=== PATIENT | female | born 1965 | race Caucasian/White ===

== ENCOUNTER 2020-01-29 22:55 | Emergency (ER) | payer OTHER ==
[~2020-01-29] VITALS: Ht 172.7 cm; Wt 100.0 kg
[~2020-01-29 22:55] MED LIST: ABAT125S IM; CYCL10TA2 PO; DULO60CA45 PO; FOLI1TAB16 PO; HYDR-2761 PO; LANS30CA66 PO; METH2.5T PO
[2020-01-30] MEDS ORDERED: MORPHINE SULFATE 10 MG/ML VIAL. IV ONE (00:15)
[2020-01-30] MEDS ORDERED: ONDANSETRON PF 4 MG/2 ML VIAL. IVP ONE ×2 (00:15→02:45)
[2020-01-30] MEDS ORDERED: CONTRAST GIVEN. MC PRN (01:00)
[2020-01-30] MEDS ORDERED: IOHEXOL 240 MG/ML 50ML VIAL. PO ONE (01:00)
--- NOTE | 2020-01-30 01:22 | ED.ADGEN ---
Past Medical History Past Medical History: Anxiety, Depression, Other Additional Past Medical Histor: rheumatoid arthritis Past Surgical History: Other Additional Past Surgical Histo: hernia rep, abd stapled Smoking Status: Former Smoker Alcohol Use: None Drug Use: Marijuana Adult General Chief Complaint Chief Complaint: ABDOMINAL PAIN HPI HPI Patient is a 54 year old female who presents with left lower quadrant pain radiating groin. Onset 2 hours prior to arrival. No nausea vomiting, fever chills or sweats. No urinary frequency urgency or burning. Pain is moderate to severe. Denies constipation or diarrhea. The patient give herself an enema prior to arrival without relief of symptoms. Previous abdominal wall hernia repair. No history of bowel obstructions. No other acute symptoms or complaints.[] Review of Systems Review of Systems ROS as per HPI Current Medications Current Medications Current Medications Medications (Trade) Dose Ordered Sig/Rah Start Time Stop Time Status Last Admin Dose Admin Info (CONTRAST GIVEN -- Rx MONITORING) 1 each PRN DAILY PRN 01/30/20 01:00 02/01/20 00:59 Iohexol (Omnipaque 240 Mg/ml) 30 ml 1X ONCE 01/30/20 01:00 01/30/20 01:01 DC 01/30/20 01:30 30 ML Ketorolac Tromethamine (Toradol 30mg Vial) 30 mg 1X ONCE 01/30/20 02:45 01/30/20 02:46 DC 01/30/20 03:53 30 MG Morphine Sulfate (Morphine Sulfate) 4 mg 1X ONCE 01/30/20 02:45 01/30/20 02:46 DC 01/30/20 03:54 4 MG Ondansetron HCl (Zofran) 4 mg 1X ONCE 01/30/20 02:45 01/30/20 02:46 DC 01/30/20 03:53 4 MG Allergies Allergies Allergies Coded Allergies Type Severity Reaction Last Updated Verified No Known Drug Allergies 06/26/14 No Physical Exam Physical Exam Constitutional: Well developed, well nourished, no acute distress, non-toxic appearance. [] HENT: Normocephalic, atraumatic, bilateral external ears normal, oropharynx moist,, nose normal. [] Eyes: PERRLA, EOMI, conjunctiva normal, no discharge. [] Neck: Normal range of motion. [] Cardiovascular:Heart rate regular rhythm, no murmur [] Lungs & Thorax: Bilateral breath sounds clear to auscultation. [] Abdomen: Bowel sounds normal, soft, no tenderness. [] Skin: Warm, dry, no erythema, no rash. [] Back: No tenderness. [] Extremities: No tenderness, no edema. [] Neurologic: Alert and oriented X 3, normal motor function, normal sensory function, no focal deficits noted. [] Psychologic: Affect normal, judgement normal, mood normal. [] Current Patient Data Vital Signs Vital Signs Date Time Temp Pulse Resp B/P (MAP) Pulse Ox O2 Delivery O2 Flow Rate FiO2 01/30/20 03:54 16 98 Room Air 01/29/20 23:15 98.2 79 142/87 (105) 98.2 Lab Values Laboratory Tests Test 01/30/20 01:10 01/30/20 03:16 White Blood Count 15.4 x10^3/uL (4.0-11.0) H Red Blood Count 4.44 x10^6/uL (3.50-5.40) Hemoglobin 15.1 g/dL (12.0-15.5) Hematocrit 44.1 % (36.0-47.0) Mean Corpuscular Volume 99 fL (79-100) Mean Corpuscular Hemoglobin 34 pg (25-35) Mean Corpuscular Hemoglobin Concent 34 g/dL (31-37) Red Cell Distribution Width 14.4 % (11.5-14.5) Platelet Count 359 x10^3/uL (140-400) Neutrophils (%) (Auto) 76 % (31-73) H Lymphocytes (%) (Auto) 15 % (24-48) L Monocytes (%) (Auto) 7 % (0-9) Eosinophils (%) (Auto) 1 % (0-3) Basophils (%) (Auto) 1 % (0-3) Neutrophils # (Auto) 11.8 x10^3/uL (1.8-7.7) H Lymphocytes # (Auto) 2.3 x10^3/uL (1.0-4.8) Monocytes # (Auto) 1.1 x10^3/uL (0.0-1.1) Eosinophils # (Auto) 0.2 x10^3/uL (0.0-0.7) Basophils # (Auto) 0.1 x10^3/uL (0.0-0.2) Sodium Level 139 mmol/L (136-145) Potassium Level 3.7 mmol/L (3.5-5.1) Chloride Level 100 mmol/L (98-107) Carbon Dioxide Level 29 mmol/L (21-32) Anion Gap 10 (6-14) Blood Urea Nitrogen 20 mg/dL (7-20) Creatinine 1.2 mg/dL (0.6-1.0) H Estimated GFR (Cockcroft-Gault) 46.6 BUN/Creatinine Ratio 17 (6-20) Glucose Level 117 mg/dL (70-99) H Calcium Level 9.4 mg/dL (8.5-10.1) Total Bilirubin 0.5 mg/dL (0.2-1.0) Aspartate Amino Transferase (AST) 12 U/L (15-37) L Alanine Aminotransferase (ALT) 34 U/L (14-59) Alkaline Phosphatase 97 U/L (46-116) Troponin I Quantitative < 0.017 ng/mL (0.000-0.055) Total Protein 7.2 g/dL (6.4-8.2) Albumin 3.9 g/dL (3.4-5.0) Albumin/Globulin Ratio 1.2 (1.0-1.7) Lipase 572 U/L (73-393) H Urine Collection Type Unknown Urine Color Yellow Urine Clarity Clear Urine pH 5.5 (<5.0-8.0) Urine Specific [place] 1.020 (1.000-1.030) Urine Protein Negative mg/dL (NEG-TRACE) Urine Glucose (UA) Negative mg/dL (NEG) Urine Ketones (Stick) Negative mg/dL (NEG) Urine Blood Large (NEG) Urine Nitrite Negative (NEG) Urine Bilirubin Negative (NEG) Urine Urobilinogen Dipstick 0.2 mg/dL (0.2 mg/dL) Urine Leukocyte Esterase Negative (NEG) Urine RBC Tntc /HPF (0-2) Urine WBC 1-4 /HPF (0-4) Urine Squamous Epithelial Cells Mod /LPF Urine Bacteria Few /HPF (0-FEW) Urine Mucus Marked /LPF Laboratory Tests 01/30/20 01:10 Laboratory Tests 01/30/20 01:10 EKG EKG [] Radiology/Procedures Radiology/Procedures [Abdomen pelvis: 4 mm distal stone with hydronephrosis.] Course & Med Decision Making Course & Med Decision Making Pertinent Labs and Imaging studies reviewed. (See chart for details) [4 mm distal stone without infection and moderate hydronephrosis. Symptoms improved with treatment. Patient resting comfortably. Will treat supportively with PCP follow-up for recommended urology referral. Return precautions reviewed. Patient verbalizes understanding agreement discharge instructions prior to departure.] Dragon Disclaimer Dragon Disclaimer This electronic medical record was generated, in whole or in part, using a voice recognition dictation system. JUAN HOWELL DO Jan 30, 2020 01:21
[2020-01-30 01:57] LABS: BASO # 0.1 x10^3/uL (0.0-0.2); BASO % 1 % (0-3); EOS # 0.2 x10^3/uL (0.0-0.7); EOS % 1 % (0-3); HEMATOCRIT 44.1 % (36.0-47.0); HEMOGLOBIN 15.1 g/dL (12.0-15.5); LYMPH # 2.3 x10^3/uL (1.0-4.8); LYMPH % 15 % (24-48); MEAN CORPUSCULAR HEMOGLOBIN 34 pg (25-35); MEAN CORPUSCULAR HGB CONC 34 g/dL (31-37); MEAN CORPUSCULAR VOLUME 99 fL (79-100); MONO # 1.1 x10^3/uL (0.0-1.1); MONO % 7 % (0-9); NEUT # 11.8 x10^3/uL (1.8-7.7); NEUT % 76 % (31-73); PLATELET COUNT 359 x10^3/uL (140-400); RED BLOOD COUNT 4.44 x10^6/uL (3.50-5.40); RED CELL DISTRIBUTION WIDTH 14.4 % (11.5-14.5); WHITE BLOOD COUNT 15.4 x10^3/uL (4.0-11.0)
--- NOTE | 2020-01-30 02:01 | RAD ---
CT abdomen and pelvis without contrast: Reason for examination: Left lower quadrant abdominal pain. Helical images were obtained through the abdomen and pelvis with no intravenous contrast but oral contrast was given. Reconstruction was performed in sagittal and coronal planes. Exposure: One or more of the following individualized dose reduction techniques were utilized for this examination: 1. Automated exposure control 2. Adjustment of the mA and/or kV according to patient size 3. Use of iterative reconstruction technique. The lung bases are clear. The heart size is normal with no pericardial effusion. No abnormality seen at the liver. Spleen shows calcified granuloma. Gallbladder shows cholelithiasis. No abnormality seen at the pancreas or adrenal glands. The abdominal aorta and inferior vena cava show no abnormalities. No abnormality seen at the appendix. The colon shows no diverticulosis, diverticulitis or colitis. The small intestinal tract shows no abnormal dilatation, wall thickening or obstruction. Stomach shows postop changes in the contains a large amount of contrast but shows no obstruction or wall thickening. The right kidney shows no renal mass, renal calculi, hydronephrosis or obstructive uropathy. The left kidney shows no renal masses or renal calculus. There is however moderate hydronephrosis which appears be due to a distal ureteral calculus measuring 4 mm in greatest dimension. No abnormality seen at the bladder, uterus or ovaries. No free fluid or free air seen in the abdomen or pelvis. There are some degenerative changes in the spine but no acute bony abnormality seen. IMPRESSION: Cholelithiasis. Moderate left hydronephrosis due to a 4 mm calculus at the distal left ureter. Electronically signed by: Jolanta Barroso MD (01/30/2020 1:58 AM) [id number]
[2020-01-30 02:09] LABS: CALCIUM 9.4 mg/dL (8.5-10.1); CREATININE 1.2 mg/dL (0.6-1.0); GFR 46.6; POTASSIUM 3.7 mmol/L (3.5-5.1)
[2020-01-30 02:14] LABS: ALBUMIN 3.9 g/dL (3.4-5.0); ALBUMIN/GLOBULIN RATIO 1.2 (1.0-1.7); TOTAL BILIRUBIN 0.5 mg/dL (0.2-1.0); TOTAL PROTEIN 7.2 g/dL (6.4-8.2)
[2020-01-30] MEDS ORDERED: MORPHINE SULFATE 4 MG/ML VIAL. IV ONE (02:45)
[2020-01-30] MEDS ORDERED: KETOROLAC 30 MG/ML VIAL. IVP ONE (02:45)
[2020-01-30 03:33] LABS: BILIRUBIN,URINE NEGATIVE (NEG); CLARITY,URINE CLEAR; COLOR,URINE YELLOW; NITRITE,URINE NEGATIVE (NEG); PH,URINE 5.5 (<5.0-8.0); PROTEIN,URINE NEGATIVE (NEG-TRACE); UROBILINOGEN,URINE 0.2 mg/dL (0.2 mg/dL)
[2020-01-30 03:45] LABS: RBC,URINE TNTC /HPF (0-2)
[2020-01-30 03:46] LABS: BACTERIA,URINE FEW /HPF (0-FEW); SQUAMOUS EPITHELIAL CELL,UR MOD /LPF
[2020-01-30 03:51] VITALS: BP 143/66
[2020-01-30] MEDS ORDERED: HYDR-3135 PO (04:03)
[2020-01-30] MEDS ORDERED: TAMS0.4C97 PO (04:03)
[2020-01-30] MEDS ORDERED: ONDA4TAB7 PO (04:03)
== END 2020-01-30 04:50 | disposition home or self-care (01) ==
LOC: ER 22:55
DX: N13.2 Hydronephrosis with renal and ureteral calculous obstruction (principal); K80.20 Calculus of gallbladder without cholecystitis without obstruction; Z87.891 Personal history of nicotine dependence; Z98.890 Other specified postprocedural states
CPT/HCPCS: 36415; 74176; 80053; 81001; 83690; 84484; 85025; 96374; 96375; 96376; 99285; J1885; J2270; J2405; Q9966

== ENCOUNTER 2020-07-22 20:31 | Emergency (ER) | payer OTHER ==
[~2020-07-22] VITALS: Ht 172.7 cm; Wt 102.0 kg
[~2020-07-22 20:31] MED LIST changes: +HYDR-3135 PO; +ONDA4TAB7 PO; +TAMS0.4C97 PO
[2020-07-22 20:55] VITALS: BP 132/64
--- NOTE | 2020-07-22 21:50 | PHYS DOC ---
Past Medical History Past Medical History: Anxiety, Depression, High Cholesterol, Hypertension, Other Additional Past Medical Histor: rheumatoid arthritis, neuropathy Past Surgical History: Other Additional Past Surgical Histo: hernia rep, abd stapled Smoking Status: Former Smoker Alcohol Use: None Drug Use: Marijuana General Adult EDM: Chief Complaint: SHORTNESS OF BREATH HPI: HPI: Patient is a 55 year [id number] female presents with a chief complaint of shortness of breath nausea fever since this a.m. Patient states she last took ibuprofen at 1700 hrs. Patient states she has nasal drainage congestion and a cough. Patient is currently afebrile she is nontoxic appearing. Patient's vital signs are stable. Review of Systems: Review of Systems: Constitutional: POSITIVE FEVER Eyes: Denies change in visual acuity. [] HENT: POSITIVE nasal congestion Respiratory: POSITIVE cough or shortness of breath. [] Cardiovascular: Denies chest pain or edema. [] GI: Denies abdominal pain, nausea, vomiting, bloody stools or diarrhea. [] : Denies dysuria. [] Musculoskeletal: Denies back pain or joint pain. [] Integument: Denies rash. [] Neurologic: Denies headache, focal weakness or sensory changes. [] Endocrine: Denies polyuria or polydipsia. [] Lymphatic: Denies swollen glands. [] Psychiatric: Denies depression or anxiety. [] Heart Score: Risk Factors: Risk Factors: DM, Current or recent (<one month) smoker, HTN, HLP, family history of CAD, obesity. Risk Scores: Score 0 - 3: 2.5% MACE over next 6 weeks - Discharge Home Score 4 - 6: 20.3% MACE over next 6 weeks - Admit for Clinical Observation Score 7 - 10: 72.7% MACE over next 6 weeks - Early Invasive Strategies Allergies: Allergies: Allergies Coded Allergies Type Severity Reaction Last Updated Verified No Known Drug Allergies 06/26/14 No Physical Exam: PE: Constitutional: Well developed, well nourished, no acute distress, non-toxic appearance. [] HENT: Normocephalic, atraumatic, bilateral external ears normal, oropharynx moist, no oral exudates, nose normal. [] Eyes: PERRLA, EOMI, conjunctiva normal, no discharge. [] Neck: Normal range of motion, no tenderness, supple, no stridor. [] Cardiovascular:Heart rate regular rhythm, no murmur [] Lungs & Thorax: Bilateral breath sounds clear to auscultation [] Abdomen: Bowel sounds normal, soft, no tenderness, no masses, no pulsatile masses. [] Skin: Warm, dry, no erythema, no rash. [] Back: No tenderness, no CVA tenderness. [] Extremities: No tenderness, no cyanosis, no clubbing, ROM intact, no edema. [] Neurologic: Alert and oriented X 3, normal motor function, normal sensory f unction, no focal deficits noted. [] Psychologic: Affect normal, judgement normal, mood normal. [] Current Patient Data: Vital Signs: Vital Signs Date Time Temp Pulse Resp B/P (MAP) Pulse Ox O2 Delivery O2 Flow Rate FiO2 07/22/20 20:55 98.6 83 16 132/64 (86) 97 Room Air 98.6 EKG: EKG: [] Radiology/Procedures: Radiology/Procedures: [] Impression: Findings: AP portable upright frontal view of the chest was obtained. The cardiomediastinal silhouette is normal. Lungs are clear. There is no pneumothorax. No pleural effusion is appreciated. No acute bone abnormality. Epigastric surgical clips are present. IMPRESSION: No acute cardiopulmonary process. Course & Med Decision Making: Course & Med Decision Making Pertinent Labs and Imaging studies reviewed. (See chart for details) [] Dragon Disclaimer: Dragon Disclaimer: This electronic medical record was generated, in whole or in part, using a voice recognition dictation system. Departure Departure Impression: Primary Impression: Person under investigation for COVID-19 Additional Impression: Viral syndrome Disposition: 01 HOME, SELF-CARE Condition: STABLE Referrals: EMMIE PRECIADO MSN, RN, MEDICAL VIDEOGRAPHER (PCP) Patient Instructions: Viral Syndrome Additional Instructions: You have been tested for or diagnosed with COVID-19. It is an infection caused by a new type of coronavirus. COVID-19 will cause cold-like or mild flu symptoms in most. It can cause more severe symptoms like problems breathing in some. There is no treatment for COVID-19. The body will clear the infection over time. Self-care will help to ease discomfort. Steps to Take: Self-Care Rest as needed. Healthy habits may help you feel better. Steps include: Choose healthy foods including fruits and vegetables. Drink water throughout the day. Get plenty of sleep each night. If you smoke, try to quit. It may ease breathing. Avoid alcohol. Keep Others Healthy The virus can spread to others. Droplets are released every time you sneeze or cough. The droplets can get into the mouth, nose, or eyes of people near you and lead to infection. To lower the chances of spreading COVID-19 to others: Stay at home until your doctor has said it is safe to leave. If you tested positive this will mean staying isolated until both of the following are true: At least 7 days have passed since the start of illness. You are free of fever for at least 72 hours without the use of medicine. During this time: - Avoid public areas, events, or transportation. Do not return to work or school until your doctor has said it is safe to do so. - Call ahead if you need to go to a medical center. Let them know you may have COVID-19. It will help them guide you where to go. They may also ask you to wear a facemask when you come to the office. - If you call for emergency medical services, let them know you may have COVID- 19. While at home: - Try to avoid close contact with others. Stay about 6 feet away. - If possible, spend most of your time in a separate room from others. - Use a face mask if you will be in close contact with others such as sharing a room or vehicle. - Have someone wipe down common surfaces in the home. Use household studio engineer every day on areas like doorknobs, counters, or sinks. - Cough or sneeze into a tissue. Throw the tissue away right after use. If a tissue is not available, cough or sneeze into your elbow. - Wash your hands often. Wash them after sneezing or coughing. Use soap and water and wash for at least 20 seconds. Alcohol based hand sweeper cleaner industrial can be used if soap and water is not available. - Do not prepare food for others. Avoid sharing personal items like forks, spoons, or toothbrushes. - Avoid close contact with pets while you are sick. There is no evidence of the virus passing to pets. This is a safety step until more is known about this virus. Isolation can be frustrating. Social interaction can help. Keep in touch with friends and family through phone and tech options. You can still interact with others in your home, just keep a safe distance of about 6 feet. Follow-up: Your doctors office will check in with you to see if there are any changes in your health. You may be asked to keep track of symptoms to share with them. They will also let you know when you are clear to be in public again. Problems to Look Out For: Contact your doctor if your recovery is not going as you expect. Get emergency care if you have problems such as: - Trouble breathing - Nonstop chest pain or pressure - Changes in awareness, confusion, or problems waking - Lips or face have bluish color - Worsening of symptoms If you think you have an emergency, call for emergency medical services right away. As taken from [facility] Azithromycin (ZITHROMAX) 250 Mg Tablet 1 PKG PO UD, #6 TAB Prov: DARRYN GARG I DO 07/22/20 Justicifation of Admission Dx: Justifications for Admission: Justification of Admission Dx: N/A DARRYN GARG I DO Jul 22, 2020 21:50
--- NOTE | 2020-07-22 22:04 | RAD ---
Examination: CHEST AP ONLY History: sob fever Comparison: None. Findings: AP portable upright frontal view of the chest was obtained. The cardiomediastinal silhouette is normal. Lungs are clear. There is no pneumothorax. No pleural effusion is appreciated. No acute bone abnormality. Epigastric surgical clips are present. IMPRESSION: No acute cardiopulmonary process. Electronically signed by: Harvinder Silva MD (07/22/2020 10:01 PM) [id number]
[2020-07-22] MEDS ORDERED: AZIT250T PO (22:17)
--- NOTE | 2020-07-23 08:33 | EKG ---
[facility] [address] [place] [address] Test Date: 2020-07-22 Test Time: 20:52:12 Pat Name: HINA CROCKETT Department: Room: Gender: F Senior Actuarial Analyst: : 1965 Requested By: DARRYN GARG Order Number: [id number] Reading MD: Measurements Intervals [place] Rate: 79 P: 48 [place]: 214 QRS: 7 QRSD: 98 T: 58 QT: 382 QTc: 439 Interpretive Statements SINUS RHYTHM INCOMPLETE RIGHT BUNDLE BRANCH BLOCK OTHERWISE NORMAL ECG RI6.02 No previous ECG available for comparison
--- NOTE | 2020-07-24 09:29 | NUR ---
IP: Informed pt of negative COVID results. Pt verbalized understanding.
== END 2020-07-22 22:23 | disposition home or self-care (01) ==
LOC: ER 20:31
DX: B34.9 Viral infection, unspecified (principal); Z20.828 Contact with and (suspected) exposure to other viral communicable diseases; R06.02 Shortness of breath; R50.9 Fever, unspecified; R11.0 Nausea; F41.9 Anxiety disorder, unspecified; F32.9 Major depressive disorder, single episode, unspecified; E78.00 Pure hypercholesterolemia, unspecified; I10 Essential (primary) hypertension; F12.90 Cannabis use, unspecified, uncomplicated; Z87.891 Personal history of nicotine dependence; Z98.890 Other specified postprocedural states
CPT/HCPCS: 71045; 93005; 99285; U0003; 99284

== ENCOUNTER 2021-04-13 17:02 | Inpatient (IN) | payer OTHER ==
[~2021-04-13] VITALS: Ht 172.7 cm; Wt 104.0 kg
[~2021-04-13 17:02] MED LIST changes: +AZIT250T PO
[2021-04-13] MEDS ORDERED: VANCOMYCIN PER PHARMACY MC ONE (17:30)
[2021-04-13] MEDS ORDERED: fentaNYL PF VIAL 100 MCG/2 ML VIAL IVP ONE (17:30)
[2021-04-13] MEDS ORDERED: ONDANSETRON PF 4 MG/2 ML VIAL. IVP ONE (17:30)
[2021-04-13] MEDS ORDERED: IV NORMAL SALINE 1000ML BAG 1,000 ML IV SCH (17:30)
[2021-04-13] MEDS ORDERED: ACETAMINOPHEN 500 MG TABLET PO ONE (17:30)
--- NOTE | 2021-04-13 17:39 | PHYS DOC ---
Past Medical History Past Medical History: Anxiety, Depression, High Cholesterol, Hypertension, Other Additional Past Medical Histor: rheumatoid arthritis, neuropathy Past Surgical History: Other Additional Past Surgical Histo: hernia rep, abd stapled Smoking Status: Former Smoker Alcohol Use: None Drug Use: Marijuana General Adult EDM: Chief Complaint: ABSCESS HPI: HPI: Patient is a 55 year old female who presents with lower abdominal abscess with cellulitis for the last week. It is open and looks to be draining. She is febrile at 100 in the ER. She states she took a tramadol for 7 out of 10 pain earlier this morning. Pain is 7 out of 10 and aching burning. States she has slight nausea. She has a history of hernia repair, former smoker, marijuana use, depression, rheumatoid arthritis, neuropathy, hypertension, high cholesterol. Patient states she has received both of her Covid shots. She denies vomiting, chest pain, shortness of breath, cough, dizziness, body aches, chills, diarrhea, headache. Review of Systems: Review of Systems: Constitutional: Denies fever or chills. [] Eyes: Denies change in visual acuity. [] HENT: Denies nasal congestion or sore throat. [] Respiratory: Denies cough or shortness of breath. [] Cardiovascular: Denies chest pain or edema. [] GI: + abdominal pain, +nausea, denies vomiting, bloody stools or diarrhea. [] : Denies dysuria. [] Musculoskeletal: Denies back pain or joint pain. [] Integument: Denies rash. Abdominal abscess with cellulitis +[] Neurologic: Denies headache, focal weakness or sensory changes. [] Endocrine: Denies polyuria or polydipsia. [] Lymphatic: Denies swollen glands. [] Psychiatric: Denies depression or anxiety. [] Heart Score: C/O Chest Pain: No Risk Factors: Risk Factors: DM, Current or recent (<one month) smoker, HTN, HLP, family history of CAD, obesity. Risk Scores: Score 0 - 3: 2.5% MACE over next 6 weeks - Discharge Home Score 4 - 6: 20.3% MACE over next 6 weeks - Admit for Clinical Observation Score 7 - 10: 72.7% MACE over next 6 weeks - Early Invasive Strategies Current Medications: Current Medications Medications (Trade) Dose Ordered Sig/Rah Start Time Stop Time Status Last Admin Dose Admin Acetaminophen (Tylenol) 1,000 mg 1X ONCE 04/13/21 17:30 04/13/21 17:31 DC Fentanyl Citrate (Fentanyl 2ml Vial) 25 mcg 1X ONCE 04/13/21 17:30 04/13/21 17:31 DC Ondansetron HCl (Zofran) 4 mg 1X ONCE 04/13/21 17:30 04/13/21 17:31 DC Sodium Chloride 1,000 ml @ 1,000 mls/hr Q1H 04/13/21 17:30 04/13/21 18:29 Vancomycin HCl (Vanco Per Pharmacy) 1 each 1X ONCE 04/13/21 17:30 04/13/21 17:31 UNV Allergies: Allergies: Allergies Coded Allergies Type Severity Reaction Last Updated Verified No Known Drug Allergies 06/26/14 No Physical Exam: PE: Constitutional: Well developed, well nourished, no acute distress, non-toxic appearance. [] HENT: Normocephalic, atraumatic, bilateral external ears normal, oropharynx moist, no oral exudates, nose normal. [] Eyes: PERRLA, EOMI, conjunctiva normal, no discharge. [] Neck: Normal range of motion, no tenderness, supple, no stridor. [] Cardiovascular:Heart rate regular rhythm, no murmur [] Lungs & Thorax: Bilateral breath sounds clear to auscultation [] Abdomen: Bowel sounds normal, soft, no tenderness, no masses, no pulsatile masses. [] Skin: Warm, dry, abdominal abscess with erythema, no rash. [] Back: No tenderness, no CVA tenderness. [] Extremities: No tenderness, no cyanosis, no clubbing, ROM intact, no edema. [] Neurologic: Alert and oriented X 3, normal motor function, normal sensory function, no focal deficits noted. [] Psychologic: Affect normal, judgement normal, mood normal. [] EKG: EKG: [] Radiology/Procedures: Radiology/Procedures: [] Impression: [facility] [address] [place] [address] IMAGING REPORT Signed PATIENT: HINA CROCKETT ACCOUNT: [id number] : 1965 LOCATION: ER AGE: 55 SEX: F EXAM STATUS: REG ER ORD. PHYSICIAN: SUZANNE CAT APRN REASON: abdominal cellulitis with abscess PROCEDURE: CT ABD PELV W/ IV CONTRST ONLY Examination: CT of the abdomen pelvis with IV contrast HISTORY: History of abdominal cellulitis COMPARISON: 01/30/2020 TECHNIQUE: Axial CT images of the abdomen pelvis were performed with IV contrast. Coronal and sagittal reformats are performed Exposure: One or more of the following individualized dose reduction techniques were utilized for this examination: 1. Automated exposure control 2. Adjustment of the mA and/or kV according to patient size 3. Use of iterative reconstruction technique. FINDINGS: Minimal bibasilar lung atelectasis. No evidence of free air identified in the abdomen. The liver, spleen, adrenals grossly appears unremarkable. Gallstones identified within the gallbladder. The stomach is mildly distended. Metallic coils identified about the stomach. The visualized pancreas grossly appears unremarkable. The small bowel is nondilated. Feces and gas noted in the colon. The appendix is normal. The bilateral kidneys enhance symmetrically. Mild aortic atherosclerosis. Moderate inflammatory fat stranding identified in the anterior abdominal wall inferiorly likely cellulitis. Moderate degenerative changes lumbar spine. IMPRESSION: 1. Moderate inflammatory fat stranding identified in the anterior abdominal wall inferiorly likely cellulitis. 2. Cholelithiasis. Electronically signed by: Paco Estrada MD (04/13/2021 6:45 PM) [id number] DICTATED and SIGNED BY: PACO ESTRADA MD DATE: 04/13/21 [id number] Course & Med Decision Making: Course & Med Decision Making Pertinent Labs and Imaging studies reviewed. (See chart for details) See HPI. Alert and oriented x4. Ambulatory with steady gait. Speaks in full clear sentences. There is no abdominal large egg sized abscess that is open and appears to be have drained and is hard and nonfluctuant. It has associated cellulitis. The area expands at 28 cm horizontally and 18.5 cm vertically. Eren hurd is started on vancomycin and given fluid. She is also given Tylenol in the ED. Patient is told she will be admitted for IV antibiotics. She agrees to this. Blood work is unremarkable. Her C-reactive protein is elevated. [] Dragon Disclaimer: Dragon Disclaimer: This electronic medical record was generated, in whole or in part, using a voice recognition dictation system. Departure Departure Impression: Primary Impression: Cellulitis and abscess of other specified site Disposition: ADMITTED INPATIENT Admitting Physician: GUICHO Condition: STABLE Referrals: EMMIE PRECIADO MSN, RN, HOME HEALTH OCCUPATIONAL THERAPIST (PCP) SUZANNE CAT APRN Apr 13, 2021 17:39
[2021-04-13 17:52] LABS: BASO % 1 % (0-3); EOS # 0.1 x10^3/uL (0.0-0.7); EOS % 1 % (0-3); HEMATOCRIT 39.6 % (36.0-47.0); HEMOGLOBIN 13.6 g/dL (12.0-15.5); LYMPH # 1.8 x10^3/uL (1.0-4.8); LYMPH % 17 % (24-48); MEAN CORPUSCULAR HEMOGLOBIN 34 pg (25-35); MEAN CORPUSCULAR HGB CONC 34 g/dL (31-37); MEAN CORPUSCULAR VOLUME 100 fL (79-100); MONO # 0.5 x10^3/uL (0.0-1.1); MONO % 5 % (0-9); NEUT % 76 % (31-73); PLATELET COUNT 231 x10^3/uL (140-400); RED BLOOD COUNT 3.95 x10^6/uL (3.50-5.40); RED CELL DISTRIBUTION WIDTH 14.3 % (11.5-14.5); WHITE BLOOD COUNT 10.4 x10^3/uL (4.0-11.0)
[2021-04-13 18:04] LABS: CALCIUM 8.8 mg/dL (8.5-10.1); GFR 57.4; POTASSIUM 3.7 mmol/L (3.5-5.1)
[2021-04-13 18:10] LABS: ALBUMIN 3.1 g/dL (3.4-5.0); ALBUMIN/GLOBULIN RATIO 0.9 (1.0-1.7); C-REACTIVE PROTEIN 92.8 mg/L (0-3.3); TOTAL PROTEIN 6.6 g/dL (6.4-8.2)
[2021-04-13] MEDS ORDERED: IOHEXOL 300 MG/ML 100ML VIAL. IV ONE (18:15)
[2021-04-13] MEDS ORDERED: VANCOMYCIN 2 GM in IV NORMAL SALINE 500ML BAG 500 ML IV ONE (18:30)
--- NOTE | 2021-04-13 18:48 | RAD ---
Examination: CT of the abdomen pelvis with IV contrast HISTORY: History of abdominal cellulitis COMPARISON: 01/30/2020 TECHNIQUE: Axial CT images of the abdomen pelvis were performed with IV contrast. Coronal and sagitta l reformats are performed Exposure: One or more of the following individualized dose reduction techniques were utilized for thi s examination: 1. Automated exposure control 2. Adjustment of the mA and/or kV according to patient size 3. Use of iterative reconstruction technique. FINDINGS: Minimal bibasilar lung atelectasis. No evidence of free air identified in the abdomen. The liver, spl een, adrenals grossly appears unremarkable. Gallstones identified within the gallbladder. The stomach is mildly distended. Metallic coils identified about the stomach. The visualized pancreas grossly ap pears unremarkable. The small bowel is nondilated. Feces and gas noted in the colon. The appendix is normal. The bilateral kidneys enhance symmetrically. Mild aortic atherosclerosis. Moderate inflammatory fat stranding identified in the anterior abdominal wall inferiorly likely cellu litis. Moderate degenerative changes lumbar spine. IMPRESSION: 1. Moderate inflammatory fat stranding identified in the anterior abdominal wall inferiorly likely c ellulitis. 2. Cholelithiasis. Electronically signed by: Paco Estrada MD (04/13/2021 6:45 PM) [id number]
[2021-04-13] MEDS ORDERED: ACETAMINOPHEN 325 MG TABLET. PO PRN (19:00)
[2021-04-13 20:00] VITALS: BP 103/59
--- NOTE | 2021-04-13 20:01 | NUR ---
pt. arrived to the floor at 1999 by wheelchair from ER. Pt. is A&Ox4, on room air and is rating her pain 7/10. Pt. is pleasant and able to answer all questions. Call light placed within reach with bed in lowest setting. Will continue to monitor.
--- NOTE | 2021-04-13 20:14 | NUR ---
Pharmacy Vancomycin Dosing Note S:Consulted to monitor and dose vancomycin started 04/13/21. O:HINA CROCKETT is a 55 year old F with Abscess . Height: 5 feet, 8 inches Weight: 100.0 kg [place] Body Weight: 63.90 Adjusted Body Weight: 78.34 Dosing Weight: Actual Other Antibiotics: LABS: Last BUN: Last Creatinine: 1.0 Creatinine Clearance: 73 mL/min Last WBC: 10.4 Last Procalcitonin: Tmax (past 24 hours): 100 Microbiology: I/O: Drug Levels: Last level: on at Last dose given 04/13/21 at 1919 Vancomycin Dosing: Loading Dose: 2000 mg x1 Dosing Weight: Actual Target Trough: 10-20 A: Based on: WEIGHT AND RENAL FUNCTION, 2GM VANCOMYCIN IV GIVEN, P: 1. BEGIN Vancomycin 1500 mg IV q12h 2. Follow up Trough level on 04/15/21 at 0700 3. Pharmacy will continue to monitor, follow and adjust therapy as needed. HELEN FERNANDES RPH, 04/13/212013
[2021-04-13] MEDS ORDERED: VANCOMYCIN PER PHARMACY MC PRN (20:15)
[2021-04-13] MEDS: fentaNYL PF VIAL 100 MCG/2 ML VIAL IV PRN (20:23)
--- NOTE | 2021-04-13 22:15 | HP ---
ADMIT DATE: 04/13/2021 CHIEF COMPLAINT: Abdominal wound. HISTORY OF PRESENT ILLNESS: The patient is a pleasant middle-aged female who presented to the ER with abdominal wound and abscess. Rates it is 7/10. She has associated weakness. She has been trying to care for at home. She took some Ultram and some [id number]-[id number] meds. Symptoms now at 7/10. I discussed the case with ER physician. It appears the patient needs IV antibiotics. We are going to admit the patient, give her IV antibiotics and do some wound care. PAST MEDICAL HISTORY: Anxiety, depression, hyperlipidemia, hypertension, rheumatoid arthritis, neuropathy, hernia repair, tobacco abuse, marijuana use. ALLERGIES: None. FAMILY HISTORY: Hypertension. SOCIAL HISTORY: She quit smoking. No drink or drugs other than marijuana. MEDICATIONS: Reviewed. Please refer to the medication. PHYSICAL EXAMINATION: VITALS: Within normal limits and are stable. GENERAL: No apparent distress. Alert and oriented. HEENT: Normal cephalic atraumatic, external auditory canals are patent. EYES: Extraocular muscles are intact, pupils are equally round and reactive to light and accommodation. MUSCULOSKELETAL: Well developed, well nourished, good range of motion. ENDOCRINE: No thyromegaly was palpated. LYMPHATICS: No cervical chain or axillary nodes were noted. HEMATOPOIETIC: No bruising. NECK: Supple, no JVD, no thyromegaly was noted. LUNGS: Clear to auscultation in all lung burnham without rhonchi or wheezing. HEART: RRR, S1, S2 present. Peripheral pulses intact, no obvious murmurs were noted. ABDOMEN: The patient complains of abdominal wound. She has an abdominal abscess. Please see the pictures. EXTREMITIES: Without any cyanosis, clubbing, or edema. Pedal pulses intact, Homans sign is negative. NEUROLOGIC: Normal speech, normal tone. A and O x 3. Moves all extremities, no obvious focal deficits. PSYCHIATRIC: Normal affect, normal mood. Stable. SKIN: No ulcerations or rashes, good skin turgor, no jaundice. VASCULAR: Good capillary refill, neurovascular bundle appears to be intact. ASSESSMENT AND PLAN: Abdominal wall abscess. The patient will be admitted. We will consult Infectious Disease. IV antibiotics, home medications, deep venous thrombosis prophylaxis. Full code. Wound care. SAHRA/PRICE DR: SAHRA/katie TID: [id number]
[2021-04-13] MEDS ORDERED: QUET25TA5 PO (22:33)
[2021-04-13] MEDS ORDERED: TIZA4TAB2 PO (22:33)
[2021-04-13] MEDS ORDERED: TRAM50TA PO (22:33)
[2021-04-13] MEDS ORDERED: LAMO25TA31 PO (22:33)
[2021-04-13] MEDS ORDERED: HYDR12.575 PO (22:33)
[2021-04-13] MEDS ORDERED: GABA300C18 PO (22:33)
[2021-04-13] MEDS ORDERED: DICL100G54 TP (22:33)
[2021-04-13] MEDS ORDERED: ESCITALOPRAM OX10 MG PO (22:33)
[2021-04-13] MEDS ORDERED: CRESTOR5 MG PO (22:33)
[2021-04-13] MEDS ORDERED: traMADol 50 MG TABLET PO PRN (22:45)
[2021-04-13] MEDS ORDERED: lamoTRIgine 100 MG TABLET. PO SCH (22:54)
[2021-04-13 23:00] VITALS: BP 96/55
[2021-04-13] MEDS ORDERED: QUEtiapine 25 MG TABLET. PO ONE (23:00)
[2021-04-13] MEDS ORDERED: GABAPENTIN 300 MG CAPSULE. PO ONE (23:00)
[2021-04-13] MEDS ORDERED: lamoTRIgine 25 MG TABLET. PO ONE (23:00)
[2021-04-13] MEDS: tiZANidine 4 MG TABLET. PO PRN (23:05)
[2021-04-14 02:53] VITALS: BP 108/60
[2021-04-14 07:00] VITALS: BP 91/56
[2021-04-14] MEDS ORDERED: VANCOMYCIN 1.5 GM in IV NORMAL SALINE 500ML BAG 500 ML IV SCH (07:30)
[2021-04-14] MEDS: FOLIC ACID 1 MG TABLET. PO SCH (08:57)
[2021-04-14] MEDS: hydroCHLOROthiazide 12.5 MG CAPSULE PO SCH (08:57)
[2021-04-14] MEDS: CITALOPRAM 20 MG TABLET. PO SCH (08:57)
[2021-04-14] MEDS: CYCLOBENZAPRINE 10 MG TABLET. PO SCH (08:57)
[2021-04-14] MEDS: QUEtiapine 25 MG TABLET. PO SCH ×2 (08:57→20:13)
[2021-04-14] MEDS: GABAPENTIN 300 MG CAPSULE. PO SCH ×2 (08:57→20:12)
[2021-04-14] MEDS: lamoTRIgine 100 MG TABLET. PO SCH ×4 (08:57→20:12)
[2021-04-14] MEDS: DICLOFENAC SODIUM 1% TOPICAL GEL 100GM TUBE. TP SCH ×4 (08:58→20:10)
[2021-04-14] MEDS ORDERED: lamoTRIgine 100 MG TABLET. PO SCH (09:00)
--- NOTE | 2021-04-14 09:23 | PDOC2 ---
LACEY WASHINGTON OBSTETRICS AND GYNECOLOGY PROFESSOR 04/14/21 0923: CONSULT Date of Consult Date of Consult DATE: 04/14/21 TIME: 09:15 Reason for Consult Reason for Consult: abdominal wall cellulitis Referring Physician Referring Physician: Dr Jasso Identification/Chief Complaint Chief Complaint abdominal pain Source Source: Chart review, Patient History of Present Illness Reason for Visit: 6 days of abdominal pain, drainage, redness, she does do injections to abdomen for her RA Past Medical History Cardiovascular: No pertinent hx, HTN Pulmonary: Pneumonia CENTRAL NERVOUS SYSTEM: Other GI: GERD Hepatobiliary: No pertinent hx Psych: Anxiety, Depression Rheumatologic: Rheumatoid arthritis Infectious disease: No pertinent hx Renal/: No pertinent hx Endocrine: No pertinent hx Past Surgical History Past Surgical History: Hernia Repair, Other Family History Family History: Coronary Artery Disease, Diabetes Social History ALCOHOL: none Drugs: Marijuana Lives: with Family Current Problem List Problem List Problems Medical Problems: (1) Cellulitis and abscess of other specified site Status: Acute Current Medications Current Medications Current Medications Vancomycin HCl (Vanco Per Pharmacy) 1 each 1X ONCE MC Last administered on 04/13/21at 17:30; Start 04/13/21 at 17:30; Stop 04/13/21 at 19:35; Status DC Sodium Chloride 1,000 ml @ 1,000 mls/hr Q1H IV Last administered on 04/13/21at 18:09; Start 04/13/21 at 17:30; Stop 04/13/21 at 18:29; Status DC Fentanyl Citrate (Fentanyl 2ml Vial) 25 mcg 1X ONCE IVP Last administered on 04/13/21at 18:09; Start 04/13/21 at 17:30; Stop 04/13/21 at 17:31; Status DC Ondansetron HCl (Zofran) 4 mg 1X ONCE IVP Last administered on 04/13/21at 18:09; Start 04/13/21 at 17:30; Stop 04/13/21 at 17:31; Status DC Acetaminophen (Tylenol) 1,000 mg 1X ONCE PO Last administered on 04/13/21at 18:08; Start 04/13/21 at 17:30; Stop 04/13/21 at 17:31; Status DC Vancomycin HCl 2 gm/Sodium Chloride 500 ml @ 250 mls/hr 1X ONCE IV Last administered on 04/13/21at 19:19; Start 04/13/21 at 18:30; Stop 04/13/21 at 20:29; Status DC Iohexol (Omnipaque 300 Mg/ml) 60 ml 1X ONCE IV Last administered on 04/13/21at 18:21; Start 04/13/21 at 18:15; Stop 04/13/21 at 18:19; Status DC Fentanyl Citrate (Fentanyl 2ml Vial) 50 mcg PRN Q1HR PRN IV PAIN Last administered on 04/13/21at 20:23; Start 04/13/21 at 19:00; Stop 04/14/21 at 18:59 Acetaminophen (Tylenol) 650 mg PRN Q4HRS PRN PO FEVER > 100.3'F; Start 04/13/21 at 19:00; Stop 04/14/21 at 18:59 Vancomycin HCl 1.5 gm/Sodium Chloride 500 ml @ 250 mls/hr Q12H IV Last administered on 04/14/21at 08:56; Start 04/14/21 at 07:30 Vancomycin HCl (Vancomycin Trough Level) 1 each 1X ONCE MC ; Start 04/15/21 at 07:00; Stop 04/15/21 at 07:01 Vancomycin HCl (Vanco Per Pharmacy) 1 each PRN DAILY PRN MC SEE COMMENTS; Start 04/13/21 at 20:15 Cyclobenzaprine HCl (Flexeril) 10 mg DAILY PO Last administered on 04/14/21at 08:57; Start 04/14/21 at 09:00 Diclofenac Sodium (Voltaren) 1 brad QID TP Last administered on 04/14/21at 08:58; Start 04/14/21 at 09:00 Folic Acid (Folic Acid) 1 mg DAILY PO Last administered on 04/14/21at 08:57; Start 04/14/21 at 09:00 Gabapentin (Neurontin) 300 mg BID PO Last administered on 04/14/21at 08:57; Start 04/14/21 at 09:00 Hydrochlorothiazide (Microzide) 12.5 mg DAILY PO Last administered on 04/14/21at 08:57; Start 04/14/21 at 09:00 Methotrexate (Rheumatrex) 10 mg Mcgill PO ; Start 04/25/21 at 09:00 Quetiapine Fumarate (SEROquel) 25 mg BID PO Last administered on 04/14/21at 08:57; Start 04/14/21 at 09:00 Tizanidine HCl (Zanaflex) 2 mg PRN TID PRN PO MUSCLE SPASMS Last administered on 04/13/21at 23:05; Start 04/13/21 at 22:45 Tramadol HCl (Ultram) 50 mg PRN TID PRN PO PAIN; Start 04/13/21 at 22:45 Non-Formulary Medication (Abatacept (Orencia)) 125 mg WEEKLY IM ; Start 04/20/21 at 09:00; Status UNV Citalopram Hydrobromide (CeleXA) 20 mg DAILY PO Last administered on 04/14/21at 08:57; Start 04/14/21 at 09:00 Lamotrigine (LaMICtal) 100 mg DAILY PO ; Start 04/14/21 at 09:00; Status Cancel Atorvastatin Calcium (Lipitor) 40 mg QHS PO ; Start 04/14/21 at 21:00 Gabapentin (Neurontin) 300 mg 1X ONCE PO Last administered on 04/13/21at 23:06; Start 04/13/21 at 23:00; Stop 04/13/21 at 23:01; Status DC Quetiapine Fumarate (SEROquel) 25 mg 1X ONCE PO Last administered on 04/13/21at 23:05; Start 04/13/21 at 23:00; Stop 04/13/21 at 23:01; Status DC Lamotrigine (LaMICtal) 25 mg 1X ONCE PO ; Start 04/13/21 at 23:00; Stop 04/13/21 at 23:01; Status UNV Lamotrigine (LaMICtal) 300 mg QHS PO Last administered on 04/13/21at 23:05; Start 04/13/21 at 22:54; Stop 04/13/21 at 23:15; Status DC Lamotrigine (LaMICtal) 100 mg QID PO Last administered on 04/14/21at 08:57; Start 04/14/21 at 09:00 Active Scripts Active Reported Tramadol Hcl 50 Mg Tablet 50 Mg PO TID PRN Tizanidine Hcl 4 Mg Tablet 2 Mg PO TID PRN Crestor (Rosuvastatin Calcium) 5 Mg Tablet 20 Mg PO HS Seroquel (Quetiapine Fumarate) 25 Mg Tablet 25 Mg PO BID Lamotrigine 25 Mg Tab.er.24 25 Tab PO QID 30 Days Hydrochlorothiazide Capsule (Hydrochlorothiazide) 12.5 Mg Capsule 12.5 Mg PO DAILY Gabapentin (Gabapentin) 300 Mg Capsule 300 Mg PO BID Escitalopram Oxalate 10 Mg Tablet 1 Tab PO DAILY Voltaren (Diclofenac Sodium) 100 Gm Gel..gram. 1 Gm TP QID 30 Days apply to affected area(s) Methotrexate (Methotrexate Sodium) 2.5 Mg Tablet 2.5 Mg PO WEEKLY takes on Monday Cyclobenzaprine Hcl 10 Mg Tablet 10 Mg PO DAILY Folic Acid 1 Mg Tablet 1 Mg PO DAILY Orencia (Abatacept) 125 Mg/1 Ml Disp.syrin 125 Mg IM WEEKLY takes on Monday Allergies Allergies: Coded Allergies: No Known Drug Allergies (Unverified , 06/26/14) ROS General: No: Chills, Other (fevers ) PSYCHOLOGICAL ROS: No: Anxiety, Depression Eyes: No Blurry vision, No Double vision HEENT: No: Heacaches, Sore Throat Hematological and Lymphatic: No: Bleeding Problems, Blood Clots Respiratory: No: Cough, Shortness of breath Cardiovascular: No Chest Pain Gastrointestinal: No Nausea, No Vomiting, No Diarrhea Genitourinary: No Dysuria, No Hematuria Musculoskeletal: No Joint Pain, No Muscle Pain Neurological: No Impaired Coord/balance, No Numbness/Tingling Skin: Yes Other (see hpi) Physical Exam General: Alert, Oriented X3, Cooperative HEENT: Atraumatic, PERRLA Lungs: Clear to auscultation, Normal air movement Heart: Regular rate, Normal S1, Normal S2 Abdomen: Soft, Other (erythema is improved by markings, there is a central area of skin changes, induration, some drainage) Extremities: No clubbing, No cyanosis Skin: No rashes Neuro: Normal speech, Sensation intact Psych/Mental Status: Mental status NL, Mood NL MUSCULOSKELETAL: No deformity, No swelling Vitals VITALS Vital Signs Date Time Temp Pulse Resp B/P (MAP) Pulse Ox O2 Delivery O2 Flow Rate FiO2 04/14/21 07:00 98.2 79 16 91/56 (68) 93 Room Air 98.2 Labs Labs Laboratory Tests Test 04/13/21 17:40 White Blood Count 10.4 x10^3/uL (4.0-11.0) Red Blood Count 3.95 x10^6/uL (3.50-5.40) Hemoglobin 13.6 g/dL (12.0-15.5) Hematocrit 39.6 % (36.0-47.0) Mean Corpuscular Volume 100 fL (79-100) Mean Corpuscular Hemoglobin 34 pg (25-35) Mean Corpuscular Hemoglobin Concent 34 g/dL (31-37) Red Cell Distribution Width 14.3 % (11.5-14.5) Platelet Count 231 x10^3/uL (140-400) Neutrophils (%) (Auto) 76 % (31-73) Lymphocytes (%) (Auto) 17 % (24-48) Monocytes (%) (Auto) 5 % (0-9) Eosinophils (%) (Auto) 1 % (0-3) Basophils (%) (Auto) 1 % (0-3) Neutrophils # (Auto) 8.0 x10^3/uL (1.8-7.7) Lymphocytes # (Auto) 1.8 x10^3/uL (1.0-4.8) Monocytes # (Auto) 0.5 x10^3/uL (0.0-1.1) Eosinophils # (Auto) 0.1 x10^3/uL (0.0-0.7) Basophils # (Auto) 0.0 x10^3/uL (0.0-0.2) Sodium Level 136 mmol/L (136-145) Potassium Level 3.7 mmol/L (3.5-5.1) Chloride Level 100 mmol/L (98-107) Carbon Dioxide Level 26 mmol/L (21-32) Anion Gap 10 (6-14) Blood Urea Nitrogen 12 mg/dL (7-20) Creatinine 1.0 mg/dL (0.6-1.0) Estimated GFR (Cockcroft-Gault) 57.4 BUN/Creatinine Ratio 12 (6-20) Glucose Level 114 mg/dL (70-99) Lactic Acid Level 1.0 mmol/L (0.4-2.0) Calcium Level 8.8 mg/dL (8.5-10.1) Total Bilirubin 1.0 mg/dL (0.2-1.0) Aspartate Amino Transf (AST/SGOT) 14 U/L (15-37) Alanine Aminotransferase (ALT/SGPT) 24 U/L (14-59) Alkaline Phosphatase 85 U/L (46-116) C-Reactive Protein, Quantitative 92.8 mg/L (0-3.3) Total Protein 6.6 g/dL (6.4-8.2) Albumin 3.1 g/dL (3.4-5.0) Albumin/Globulin Ratio 0.9 (1.0-1.7) Laboratory Tests Test 04/13/21 17:40 White Blood Count 10.4 x10^3/uL (4.0-11.0) Red Blood Count 3.95 x10^6/uL (3.50-5.40) Hemoglobin 13.6 g/dL (12.0-15.5) Hematocrit 39.6 % (36.0-47.0) Mean Corpuscular Volume 100 fL (79-100) Mean Corpuscular Hemoglobin 34 pg (25-35) Mean Corpuscular Hemoglobin Concent 34 g/dL (31-37) Red Cell Distribution Width 14.3 % (11.5-14.5) Platelet Count 231 x10^3/uL (140-400) Neutrophils (%) (Auto) 76 % (31-73) Lymphocytes (%) (Auto) 17 % (24-48) Monocytes (%) (Auto) 5 % (0-9) Eosinophils (%) (Auto) 1 % (0-3) Basophils (%) (Auto) 1 % (0-3) Neutrophils # (Auto) 8.0 x10^3/uL (1.8-7.7) Lymphocytes # (Auto) 1.8 x10^3/uL (1.0-4.8) Monocytes # (Auto) 0.5 x10^3/uL (0.0-1.1) Eosinophils # (Auto) 0.1 x10^3/uL (0.0-0.7) Basophils # (Auto) 0.0 x10^3/uL (0.0-0.2) Sodium Level 136 mmol/L (136-145) Potassium Level 3.7 mmol/L (3.5-5.1) Chloride Level 100 mmol/L (98-107) Carbon Dioxide Level 26 mmol/L (21-32) Anion Gap 10 (6-14) Blood Urea Nitrogen 12 mg/dL (7-20) Creatinine 1.0 mg/dL (0.6-1.0) Estimated GFR (Cockcroft-Gault) 57.4 BUN/Creatinine Ratio 12 (6-20) Glucose Level 114 mg/dL (70-99) Lactic Acid Level 1.0 mmol/L (0.4-2.0) Calcium Level 8.8 mg/dL (8.5-10.1) Total Bilirubin 1.0 mg/dL (0.2-1.0) Aspartate Amino Transf (AST/SGOT) 14 U/L (15-37) Alanine Aminotransferase (ALT/SGPT) 24 U/L (14-59) Alkaline Phosphatase 85 U/L (46-116) C-Reactive Protein, Quantitative 92.8 mg/L (0-3.3) Total Protein 6.6 g/dL (6.4-8.2) Albumin 3.1 g/dL (3.4-5.0) Albumin/Globulin Ratio 0.9 (1.0-1.7) Assessment/Plan Assessment/Plan Abdominal wall cellulitis abx, NPO after MN, reassess if any drainage is needed MARK STEINBERG MD 04/14/21 1304: CONSULT Assessment/Plan Assessment/Plan Pt seen and examined. Agree with Ms. Washington's note Pt with excoriated skin ulceration, pannus no obvious fluctuance agree with abx and local wound care. May need debridement. Thanks for consult! LACEY WASHINGTON APRN Apr 14, 2021 09:23 MARK STEINBERG MD Apr 14, 2021 13:04
--- NOTE | 2021-04-14 10:17 | NUR ---
SW following. Discussed with RN, pt from home with family, room air, cardiac diet, IV abx. ID and wound care consulted. Surgery following - NPO after midnight. RN advised no SW needs at this time. SW will continue to follow.
[2021-04-14 11:00] VITALS: BP 106/62
[2021-04-14] MEDS: DAPTOmycin (GENERIC) IVPB 480 MG in IV NORMAL SALINE 50ML 50 ML IV SCH (11:50)
--- NOTE | 2021-04-14 12:13 | PDOC ---
[employer] PROGRESS NOTE Date of Service DOS: DATE: 04/14/21 TIME: 12:11 Chief Complaint Chief Complaint Abdominal wall cellulitis, possible abscess formation Continue empiric IV antibiotics Pending ID evaluation Appreciate surgery recscontinue antibiotics and warm compresses and evaluate tomorrow morning. N.p.o. at midnight Lovenox for DVT prophylaxis Protonix GI prophylaxis ADA diet Full code Discussed with RN and SW Disposition inpatient management as above Surrogate decision maker is History of Present Illness History of Present Illness 04/14/2021 No acute events overnight. Patient's pain is well controlled. Abdominal wound has some decrease in redness but still has active draining pus in the midline. Will consult surgery for evaluation. Patient's chart, labs, images were reviewed and discussed with RN pleasant middle-aged female who presented to the ER with abdominal wound and abscess. Rates it is 7/10. She has associated weakness. She has been trying to care for at home. She took some Ultram and some [id number] meds. Symptoms now at 7/10. I discussed the case with ER physician. It appears the patient needs IV antibiotics. We are going to admit the patient, give her IV antibiotics and do some wound care. Vitals/I&O Vitals/I&O: Vital Signs Date Time Temp Pulse Resp B/P (MAP) Pulse Ox O2 Delivery O2 Flow Rate FiO2 04/14/21 11:00 98.3 68 18 106/62 (77) 93 Room Air 98.3 I & O 04/13/21 04/13/21 04/14/21 15:00 23:00 07:00 Intake Total 1000 ml 240 ml Balance 1000 ml 240 ml Physical Exam General: Alert, Oriented X3, Cooperative Heart: Regular rate, Normal S1, Normal S2 Abdomen: Soft, Other (erythema is improved by markings, there is a central area of skin changes, induration, some drainage) Extremities: No clubbing, No cyanosis Skin: No rashes Labs Labs: Laboratory Tests Test 04/13/21 17:40 White Blood Count 10.4 x10^3/uL (4.0-11.0) Red Blood Count 3.95 x10^6/uL (3.50-5.40) Hemoglobin 13.6 g/dL (12.0-15.5) Hematocrit 39.6 % (36.0-47.0) Mean Corpuscular Volume 100 fL (79-100) Mean Corpuscular Hemoglobin 34 pg (25-35) Mean Corpuscular Hemoglobin Concent 34 g/dL (31-37) Red Cell Distribution Width 14.3 % (11.5-14.5) Platelet Count 231 x10^3/uL (140-400) Neutrophils (%) (Auto) 76 % (31-73) Lymphocytes (%) (Auto) 17 % (24-48) Monocytes (%) (Auto) 5 % (0-9) Eosinophils (%) (Auto) 1 % (0-3) Basophils (%) (Auto) 1 % (0-3) Neutrophils # (Auto) 8.0 x10^3/uL (1.8-7.7) Lymphocytes # (Auto) 1.8 x10^3/uL (1.0-4.8) Monocytes # (Auto) 0.5 x10^3/uL (0.0-1.1) Eosinophils # (Auto) 0.1 x10^3/uL (0.0-0.7) Basophils # (Auto) 0.0 x10^3/uL (0.0-0.2) Sodium Level 136 mmol/L (136-145) Potassium Level 3.7 mmol/L (3.5-5.1) Chloride Level 100 mmol/L (98-107) Carbon Dioxide Level 26 mmol/L (21-32) Anion Gap 10 (6-14) Blood Urea Nitrogen 12 mg/dL (7-20) Creatinine 1.0 mg/dL (0.6-1.0) Estimated GFR (Cockcroft-Gault) 57.4 BUN/Creatinine Ratio 12 (6-20) Glucose Level 114 mg/dL (70-99) Lactic Acid Level 1.0 mmol/L (0.4-2.0) Calcium Level 8.8 mg/dL (8.5-10.1) Total Bilirubin 1.0 mg/dL (0.2-1.0) Aspartate Amino Transf (AST/SGOT) 14 U/L (15-37) Alanine Aminotransferase (ALT/SGPT) 24 U/L (14-59) Alkaline Phosphatase 85 U/L (46-116) C-Reactive Protein, Quantitative 92.8 mg/L (0-3.3) Total Protein 6.6 g/dL (6.4-8.2) Albumin 3.1 g/dL (3.4-5.0) Albumin/Globulin Ratio 0.9 (1.0-1.7) Assessment and Plan Assessmemt and Plan Problems Medical Problems: (1) Cellulitis and abscess of other specified site Status: Acute Comment Review of Relevant I have reviewed the following items mag (where applicable) has been applied. Medications: Current Medications Medications (Trade) Dose Ordered Sig/Rah Route PRN Reason Start Time Stop Time Status Last Admin Dose Admin Vancomycin HCl (Vanco Per Pharmacy) 1 each 1X ONCE MC 04/13/21 17:30 04/13/21 19:35 DC 04/13/21 17:30 Sodium Chloride 1,000 ml @ 1,000 mls/hr Q1H IV 04/13/21 17:30 04/13/21 18:29 DC 04/13/21 18:09 Fentanyl Citrate (Fentanyl 2ml Vial) 25 mcg 1X ONCE IVP 04/13/21 17:30 04/13/21 17:31 DC 04/13/21 18:09 Ondansetron HCl (Zofran) 4 mg 1X ONCE IVP 04/13/21 17:30 04/13/21 17:31 DC 04/13/21 18:09 Acetaminophen (Tylenol) 1,000 mg 1X ONCE PO 04/13/21 17:30 04/13/21 17:31 DC 04/13/21 18:08 Vancomycin HCl 2 gm/Sodium Chloride 500 ml @ 250 mls/hr 1X ONCE IV 04/13/21 18:30 04/13/21 20:29 DC 04/13/21 19:19 Iohexol (Omnipaque 300 Mg/ml) 60 ml 1X ONCE IV 04/13/21 18:15 04/13/21 18:19 DC 04/13/21 18:21 Fentanyl Citrate (Fentanyl 2ml Vial) 50 mcg PRN Q1HR PRN IV PAIN 04/13/21 19:00 04/14/21 18:59 04/13/21 20:23 Vancomycin HCl 1.5 gm/Sodium Chloride 500 ml @ 250 mls/hr Q12H IV 04/14/21 07:30 04/14/21 10:42 DC 04/14/21 08:56 Cyclobenzaprine HCl (Flexeril) 10 mg DAILY PO 04/14/21 09:00 04/14/21 08:57 Diclofenac Sodium (Voltaren) 1 brad QID TP 04/14/21 09:00 04/14/21 08:58 Folic Acid (Folic Acid) 1 mg DAILY PO 04/14/21 09:00 04/14/21 08:57 Gabapentin (Neurontin) 300 mg BID PO 04/14/21 09:00 04/14/21 08:57 Hydrochlorothiazide (Microzide) 12.5 mg DAILY PO 04/14/21 09:00 04/14/21 08:57 Quetiapine Fumarate (SEROquel) 25 mg BID PO 04/14/21 09:00 04/14/21 08:57 Tizanidine HCl (Zanaflex) 2 mg PRN TID PRN PO MUSCLE SPASMS 04/13/21 22:45 04/13/21 23:05 Citalopram Hydrobromide (CeleXA) 20 mg DAILY PO 04/14/21 09:00 04/14/21 08:57 Gabapentin (Neurontin) 300 mg 1X ONCE PO 04/13/21 23:00 04/13/21 23:01 DC 04/13/21 23:06 Quetiapine Fumarate (SEROquel) 25 mg 1X ONCE PO 04/13/21 23:00 04/13/21 23:01 DC 04/13/21 23:05 Lamotrigine (LaMICtal) 300 mg QHS PO 04/13/21 22:54 04/13/21 23:15 DC 04/13/21 23:05 Lamotrigine (LaMICtal) 100 mg QID PO 04/14/21 09:00 04/14/21 08:57 Daptomycin 480 mg/ Sodium Chloride 50 ml @ 100 mls/hr Q24H IV 04/14/21 12:00 04/14/21 11:50 Justifications for Admission Other Justification SPENCER BAPTISTE MD Apr 14, 2021 12:13
--- NOTE | 2021-04-14 12:16 | CONS ---
DATE OF CONSULTATION: 04/14/2021 REFERRING PHYSICIAN: Dr. Singer. REASON FOR CONSULTATION: Abdominal wall cellulitis, antibiotic management. HISTORY OF PRESENT ILLNESS: A 55-year-old female with rheumatoid arthritis, on methotrexate, history of hernia repair and bypass surgery long time back, presented with complaints of abdominal swelling, redness, drainage, which started 6 days with worsening. The patient does injections to her abdomen for her rheumatoid arthritis medication. The patient was febrile at 100 degrees. She denies being on any antibiotics prior to admission. She has some nausea, no vomiting, no diarrhea, no headache, sore throat. The patient has received both of COVID shots. White count was normal at 10.4. Creatinine was 1.0, glucose of 114. C-reactive protein of 92.8, albumin of 3.1. CT abdomen and pelvis revealed moderate inflammatory fat stranding identified in the anterior abdominal wall inferiorly, likely cellulitis, cholelithiasis. Gallstones identified within gallbladder. Stomach was mildly distended. The patient was started on vancomycin. ID consultation has been requested for antibiotic management. CURRENT MEDICATIONS: Methotrexate, abatacept (Orencia) every weekly, IM vancomycin, atorvastatin, Lamictal, citalopram, quetiapine, hydrochlorothiazide, gabapentin, folic acid, diclofenac, cyclobenzaprine, tramadol, tizanidine, acetaminophen, fentanyl. PAST MEDICAL HISTORY: Rheumatoid arthritis, bone disease modifying agents, anxiety, depression, hyperlipidemia, hypertension, neuropathy, hernia repair, bypass repair 30-40 years ago. Tobacco abuse, marijuana abuse. ALLERGIES: None. FAMILY HISTORY: As per HPI. SOCIAL HISTORY: Quit smoking. No alcohol, no drugs other than marijuana. PHYSICAL EXAMINATION: VITAL SIGNS: Temperature 98.2, pulse 79, respiratory rate 18, blood pressure 91/56, oxygen saturation 93% on room air, T-max 100. GENERAL: Alert, oriented x 3 female, sitting upright in bed, in no acute distress, watching TV. HEENT: Normocephalic, atraumatic. Anicteric. No thrush. NECK: Supple, no JVD. LUNGS: Clear bilaterally. No wheezing. HEART: S1, S2. No gallops or murmurs. ABDOMEN: Obese. Erythema and swelling present over the anterior abdominal wall just below the umbilicus, above the suprapubic area receding from the previous markings. No fluctuance noted. Induration present. Some serosanguineous drainage. Mildly tender, no rebound or guarding. EXTREMITIES: No edema, no cyanosis. SKIN: Warm, dry, no generalized rash except for above. NEUROLOGIC: Alert, oriented x 3, grossly nonfocal. PSYCHIATRIC: Calm and cooperative. LABORATORY DATA: WBC 10.4, hemoglobin 13.6, hematocrit 39.6, platelets 231. Sodium 136, potassium 3.7, chloride 100, bicarbonate 26, BUN 12, creatinine 1.0, glucose 114, lactate 1.0, calcium 8.8. Total bilirubin 1.0. AST 14, ALT 24, alkaline phosphatase 85. C-reactive protein 92.8. Albumin 3.1. Micro none. Blood cultures pending. UA and urine culture pending. SARS COVID pending. IMAGING: CT abdomen and pelvis as above. IMPRESSION: 1. Abdominal wall cellulitis.Possible developing phlegmon. CT neg for abscess 2. Rheumatoid arthritis, on DMARD. 3. Anxiety, depression. 4. History of hernia repair. No foreign material per patient report. 5. Marijuana dependence. RECOMMENDATIONS: 1. Discontinue vancomycin as the patient is currently on 3 grams IV every day. Start daptomycin and Zosyn. 2. Follow up labs and cultures. 3. Continue local wound care. 4. General surgery consulted. 5. If worsens, may need I and D. 6. Continue supportive care. Thank you, Dr. Singer, for consulting Infectious Disease to participate in this patient's care. If you have any questions, do not hesitate to contact me. MARIAH DR: Esau TID: [id number] [facility]
[2021-04-14] MEDS: fentaNYL PF VIAL 100 MCG/2 ML VIAL IV PRN (12:44)
[2021-04-14] MEDS: PIPERACILLIN/TAZOBACTAM 3.375 GM in IV NORMAL SALINE 50ML 50 ML IV SCH ×2 (12:45→17:45)
[2021-04-14 15:00] VITALS: BP 88/46
--- NOTE | 2021-04-14 17:30 | NUR ---
Wound/Ostomy Care Wound Type/Assessment: pt declined wound care today, states that dressing has already been changed today, pt informed that wound care will attempt to see her again tomorrow. RADHA Arguello notified of pt's wishes.
[2021-04-14 19:00] VITALS: BP 97/57
[2021-04-14] MEDS ORDERED: ABATACEPT IM SCH (20:00)
[2021-04-14] MEDS: tiZANidine 4 MG TABLET. PO PRN (20:12)
[2021-04-14] MEDS: ATORVASTATIN CALCIUM 40 MG TABLET. PO SCH (20:13)
[2021-04-14 23:00] VITALS: BP 83/32
[2021-04-15] VITALS (7 sets, daily range): BP systolic 81–108; BP diastolic 37–59
[2021-04-15] MEDS: PIPERACILLIN/TAZOBACTAM 3.375 GM in IV NORMAL SALINE 50ML 50 ML IV SCH ×4 (00:46→18:51)
[2021-04-15] MEDS: oxyCODONE/APAP 5/325 1 TAB TABLET PO PRN ×3 (00:50→20:40)
--- NOTE | 2021-04-15 08:23 | PDOC ---
Infectious Disease Note Subjective: Subjective Patient feels about the same Abdominal swelling and redness is improved though slightly Denies fever, nausea, vomiting, shortness of breath, diarrhea, rash Otherwise as above Vital Signs: Vital Signs Vital Signs Date Time Temp Pulse Resp B/P (MAP) Pulse Ox O2 Delivery O2 Flow Rate FiO2 04/15/21 07:00 97.7 66 17 97/48 (64) 96 Room Air 97.7 Physical Exam: PHYSICAL EXAM GENERAL: Alert, oriented x 3 female, sitting upright in bed, in no acute distress, watching TV. HEENT: Normocephalic, atraumatic. Anicteric. No thrush. NECK: Supple, no JVD. LUNGS: Clear bilaterally. No wheezing. HEART: S1, S2. No gallops or murmurs. ABDOMEN: Obese. Erythema and swelling present over the anterior abdominal wall just below the umbilicus, above the suprapubic area receding from the previous markings. No fluctuance noted. Induration present. Some serosanguineous drainage. I was able to express purulent material today, mildly tender, no rebound or guarding. EXTREMITIES: No edema, no cyanosis. SKIN: Warm, dry, no generalized rash except for above. NEUROLOGIC: Alert, oriented x 3, grossly nonfocal. PSYCHIATRIC: Calm and cooperative. Medications: Inpatient Meds: Medications reviewed. Labs: Lab Laboratory Tests Test 04/14/21 11:56 04/15/21 07:10 SARS-CoV-2 RNA (MELLO) Negative (Negative) Glucose (Fingerstick) 84 mg/dL (70-99) Objective: Assessment: 1. Abdominal wall cellulitis. 2. Rheumatoid arthritis, on DMARD. 3. Anxiety, depression. 4. History of hernia repair. No foreign material per patient report. 5. Marijuana dependence. Plan: Plan of Care Sent purulent material for cultures April 15, 2021 1. Continue daptomycin and Zosyn. April 14, 2021 2. Follow up labs and cultures. 3. Continue local wound care. 4. General surgery consulted. 5. If worsens, may need I and D. 6. Continue supportive care. MIKHAIL LARIOS MD Apr 15, 2021 08:23
[2021-04-15 09:17] LABS: BASO % 0 % (0-3); EOS # 0.3 x10^3/uL (0.0-0.7); EOS % 5 % (0-3); HEMATOCRIT 35.9 % (36.0-47.0); HEMOGLOBIN 12.1 g/dL (12.0-15.5); LYMPH # 1.5 x10^3/uL (1.0-4.8); LYMPH % 26 % (24-48); MEAN CORPUSCULAR HEMOGLOBIN 35 pg (25-35); MEAN CORPUSCULAR HGB CONC 34 g/dL (31-37); MEAN CORPUSCULAR VOLUME 103 fL (79-100); MONO # 0.2 x10^3/uL (0.0-1.1); MONO % 4 % (0-9); NEUT # 3.9 x10^3/uL (1.8-7.7); NEUT % 66 % (31-73); PLATELET COUNT 210 x10^3/uL (140-400); RED BLOOD COUNT 3.49 x10^6/uL (3.50-5.40); RED CELL DISTRIBUTION WIDTH 14.4 % (11.5-14.5)
[2021-04-15 09:31] LABS: CALCIUM 8.4 mg/dL (8.5-10.1); CREATININE 0.8 mg/dL (0.6-1.0); GFR 74.2; POTASSIUM 4.1 mmol/L (3.5-5.1)
[2021-04-15] MEDS: CYCLOBENZAPRINE 10 MG TABLET. PO SCH (09:46)
[2021-04-15] MEDS: FOLIC ACID 1 MG TABLET. PO SCH (09:46)
[2021-04-15] MEDS: lamoTRIgine 100 MG TABLET. PO SCH ×4 (09:46→20:40)
[2021-04-15] MEDS: GABAPENTIN 300 MG CAPSULE. PO SCH ×2 (09:46→20:40)
[2021-04-15] MEDS: hydroCHLOROthiazide 12.5 MG CAPSULE PO SCH (09:46)
[2021-04-15] MEDS: CITALOPRAM 20 MG TABLET. PO SCH (09:46)
[2021-04-15] MEDS: DICLOFENAC SODIUM 1% TOPICAL GEL 100GM TUBE. TP SCH ×4 (09:47→20:40)
[2021-04-15] MEDS: QUEtiapine 25 MG TABLET. PO SCH ×2 (09:47→20:40)
--- NOTE | 2021-04-15 10:44 | PDOC ---
[facility] [facility] PROGRESS NOTE Date of Service DOS: DATE: 04/15/21 TIME: 10:42 Chief Complaint Chief Complaint Abdominal wall cellulitis, possible abscess formation Continue empiric IV antibiotics Pending ID evaluation Appreciate surgery recscontinue antibiotics and warm compresses and evaluate tomorrow morning. N.p.o. at midnight Lovenox for DVT prophylaxis Protonix GI prophylaxis ADA diet Full code Discussed with RN and SW Disposition inpatient management as above Surrogate decision maker is History of Present Illness History of Present Illness 04/15/2021 No acute events overnight. Patient feels okay today. A little bit tired. There is still active purulent drainage from the wound. Surgery considering possible debridement. Pending wound cultures from purulent fluid. Patient's chart, labs, images were reviewed and discussed with RN 04/14/2021 No acute events overnight. Patient's pain is well controlled. Abdominal wound has some decrease in redness but still has active draining pus in the midline. Will consult surgery for evaluation. Patient's chart, labs, images were reviewed and discussed with RADHA pleasant middle-aged female who presented to the ER with abdominal wound and abscess. Rates it is 7/10. She has associated weakness. She has been trying to care for at home. She took some Ultram and some [id number] meds. Symptoms now at 7/10. I discussed the case with ER physician. It appears the patient needs IV antibiotics. We are going to admit the patient, give her IV antibiotics and do some wound care. Vitals/I&O Vitals/I&O: Vital Signs Date Time Temp Pulse Resp B/P (MAP) Pulse Ox O2 Delivery O2 Flow Rate FiO2 04/15/21 09:51 96 Room Air 04/15/21 07:00 97.7 66 17 97/48 (64) 97.7 I & O 04/14/21 04/14/21 04/15/21 15:00 23:00 07:00 Intake Total 600 ml 200 ml Balance 600 ml 200 ml Physical Exam Physical Exam: GENERAL: Alert, oriented x 3 female, sitting upright in bed, in no acute distress, watching TV. HEENT: Normocephalic, atraumatic. Anicteric. No thrush. NECK: Supple, no JVD. LUNGS: Clear bilaterally. No wheezing. HEART: S1, S2. No gallops or murmurs. ABDOMEN: Obese. Erythema and swelling present over the anterior abdominal wall just below the umbilicus, above the suprapubic area receding from the previous markings. No fluctuance noted. Induration present. Some serosanguineous drainage. I was able to express purulent material today, mildly tender, no rebound or guarding. EXTREMITIES: No edema, no cyanosis. SKIN: Warm, dry, no generalized rash except for above. NEUROLOGIC: Alert, oriented x 3, grossly nonfocal. PSYCHIATRIC: Calm and cooperative. General: Alert, Oriented X3, Cooperative Heart: Regular rate, Normal S1, Normal S2 Abdomen: Soft, Other (erythema is improved by markings, there is a central area of skin changes, induration, some drainage) Extremities: No clubbing, No cyanosis Skin: No rashes Labs Labs: Laboratory Tests Test 04/14/21 11:56 04/15/21 07:10 04/15/21 08:30 SARS-CoV-2 RNA (MELLO) Negative (Negative) Glucose (Fingerstick) 84 mg/dL (70-99) White Blood Count 6.0 x10^3/uL (4.0-11.0) Red Blood Count 3.49 x10^6/uL (3.50-5.40) Hemoglobin 12.1 g/dL (12.0-15.5) Hematocrit 35.9 % (36.0-47.0) Mean Corpuscular Volume 103 fL (79-100) Mean Corpuscular Hemoglobin 35 pg (25-35) Mean Corpuscular Hemoglobin Concent 34 g/dL (31-37) Red Cell Distribution Width 14.4 % (11.5-14.5) Platelet Count 210 x10^3/uL (140-400) Neutrophils (%) (Auto) 66 % (31-73) Lymphocytes (%) (Auto) 26 % (24-48) Monocytes (%) (Auto) 4 % (0-9) Eosinophils (%) (Auto) 5 % (0-3) Basophils (%) (Auto) 0 % (0-3) Neutrophils # (Auto) 3.9 x10^3/uL (1.8-7.7) Lymphocytes # (Auto) 1.5 x10^3/uL (1.0-4.8) Monocytes # (Auto) 0.2 x10^3/uL (0.0-1.1) Eosinophils # (Auto) 0.3 x10^3/uL (0.0-0.7) Basophils # (Auto) 0.0 x10^3/uL (0.0-0.2) Sodium Level 142 mmol/L (136-145) Potassium Level 4.1 mmol/L (3.5-5.1) Chloride Level 107 mmol/L (98-107) Carbon Dioxide Level 32 mmol/L (21-32) Anion Gap 3 (6-14) Blood Urea Nitrogen 8 mg/dL (7-20) Creatinine 0.8 mg/dL (0.6-1.0) Estimated GFR (Cockcroft-Gault) 74.2 Glucose Level 93 mg/dL (70-99) Calcium Level 8.4 mg/dL (8.5-10.1) Magnesium Level 2.0 mg/dL (1.8-2.4) Assessment and Plan Assessmemt and Plan Problems Medical Problems: (1) Cellulitis and abscess of other specified site Status: Acute Comment Review of Relevant I have reviewed the following items mag (where applicable) has been applied. Medications: Current Medications Medications (Trade) Dose Ordered Sig/Rah Route PRN Reason Start Time Stop Time Status Last Admin Dose Admin Atorvastatin Calcium (Lipitor) 40 mg QHS PO 04/14/21 21:00 04/14/21 20:13 Daptomycin 480 mg/ Sodium Chloride 50 ml @ 100 mls/hr Q24H IV 04/14/21 12:00 04/14/21 11:50 Piperacillin Sod/ Tazobactam Sod 3.375 gm/Sodium Chloride 50 ml @ 100 mls/hr Q6HRS IV 04/14/21 12:00 04/15/21 05:20 Non-Formulary Medication (Abatacept (Orencia)) 1 mg WEEKLY IM 04/14/21 20:00 04/14/21 20:09 Oxycodone/ Acetaminophen (Percocet 5/325) 1 tab PRN Q6HRS PRN PO SEVERE PAIN 7-10 04/15/21 00:15 04/15/21 09:51 Justifications for Admission Other Justification SPENCER BAPTISTE MD Apr 15, 2021 10:44
--- NOTE | 2021-04-15 11:03 | PDOC ---
LACEY HOYOS CERTIFIED MEDICAL TECHNICIAN ASSISTANT 04/15/21 1103: SURGICAL PROGRESS NOTE DATE: 04/15/21 TIME: 11:02 Subjective resting had shower Vital Signs Vital Signs Date Time Temp Pulse Resp B/P (MAP) Pulse Ox O2 Delivery O2 Flow Rate FiO2 04/15/21 09:51 96 Room Air 04/15/21 07:00 97.7 66 17 97/48 (64) 97.7 I&O Intake and Output 04/15/21 07:00 Intake Total 800 ml Balance 800 ml Intake Oral 150 ml IV Total 650 ml # Voids 5 General: Alert, Cooperative Skin: Other (erythema seems improved, skin ulceration central area) Labs Laboratory Tests Test 04/13/21 17:40 04/14/21 11:56 04/15/21 07:10 04/15/21 08:30 White Blood Count 10.4 x10^3/uL (4.0-11.0) 6.0 x10^3/uL (4.0-11.0) Red Blood Count 3.95 x10^6/uL (3.50-5.40) 3.49 x10^6/uL (3.50-5.40) Hemoglobin 13.6 g/dL (12.0-15.5) 12.1 g/dL (12.0-15.5) Hematocrit 39.6 % (36.0-47.0) 35.9 % (36.0-47.0) Mean Corpuscular Volume 100 fL (79-100) 103 fL (79-100) Mean Corpuscular Hemoglobin 34 pg (25-35) 35 pg (25-35) Mean Corpuscular Hemoglobin Concent 34 g/dL (31-37) 34 g/dL (31-37) Red Cell Distribution Width 14.3 % (11.5-14.5) 14.4 % (11.5-14.5) Platelet Count 231 x10^3/uL (140-400) 210 x10^3/uL (140-400) Neutrophils (%) (Auto) 76 % (31-73) 66 % (31-73) Lymphocytes (%) (Auto) 17 % (24-48) 26 % (24-48) Monocytes (%) (Auto) 5 % (0-9) 4 % (0-9) Eosinophils (%) (Auto) 1 % (0-3) 5 % (0-3) Basophils (%) (Auto) 1 % (0-3) 0 % (0-3) Neutrophils # (Auto) 8.0 x10^3/uL (1.8-7.7) 3.9 x10^3/uL (1.8-7.7) Lymphocytes # (Auto) 1.8 x10^3/uL (1.0-4.8) 1.5 x10^3/uL (1.0-4.8) Monocytes # (Auto) 0.5 x10^3/uL (0.0-1.1) 0.2 x10^3/uL (0.0-1.1) Eosinophils # (Auto) 0.1 x10^3/uL (0.0-0.7) 0.3 x10^3/uL (0.0-0.7) Basophils # (Auto) 0.0 x10^3/uL (0.0-0.2) 0.0 x10^3/uL (0.0-0.2) Sodium Level 136 mmol/L (136-145) 142 mmol/L (136-145) Potassium Level 3.7 mmol/L (3.5-5.1) 4.1 mmol/L (3.5-5.1) Chloride Level 100 mmol/L (98-107) 107 mmol/L (98-107) Carbon Dioxide Level 26 mmol/L (21-32) 32 mmol/L (21-32) Anion Gap 10 (6-14) 3 (6-14) Blood Urea Nitrogen 12 mg/dL (7-20) 8 mg/dL (7-20) Creatinine 1.0 mg/dL (0.6-1.0) 0.8 mg/dL (0.6-1.0) Estimated GFR (Cockcroft-Gault) 57.4 74.2 BUN/Creatinine Ratio 12 (6-20) Glucose Level 114 mg/dL (70-99) 93 mg/dL (70-99) Lactic Acid Level 1.0 mmol/L (0.4-2.0) Calcium Level 8.8 mg/dL (8.5-10.1) 8.4 mg/dL (8.5-10.1) Total Bilirubin 1.0 mg/dL (0.2-1.0) Aspartate Amino Transf (AST/SGOT) 14 U/L (15-37) Alanine Aminotransferase (ALT/SGPT) 24 U/L (14-59) Alkaline Phosphatase 85 U/L (46-116) C-Reactive Protein, Quantitative 92.8 mg/L (0-3.3) Total Protein 6.6 g/dL (6.4-8.2) Albumin 3.1 g/dL (3.4-5.0) Albumin/Globulin Ratio 0.9 (1.0-1.7) SARS-CoV-2 RNA (MELLO) Negative (Negative) Glucose (Fingerstick) 84 mg/dL (70-99) Magnesium Level 2.0 mg/dL (1.8-2.4) Laboratory Tests Test 04/14/21 11:56 04/15/21 07:10 04/15/21 08:30 SARS-CoV-2 RNA (MELLO) Negative (Negative) Glucose (Fingerstick) 84 mg/dL (70-99) White Blood Count 6.0 x10^3/uL (4.0-11.0) Red Blood Count 3.49 x10^6/uL (3.50-5.40) Hemoglobin 12.1 g/dL (12.0-15.5) Hematocrit 35.9 % (36.0-47.0) Mean Corpuscular Volume 103 fL (79-100) Mean Corpuscular Hemoglobin 35 pg (25-35) Mean Corpuscular Hemoglobin Concent 34 g/dL (31-37) Red Cell Distribution Width 14.4 % (11.5-14.5) Platelet Count 210 x10^3/uL (140-400) Neutrophils (%) (Auto) 66 % (31-73) Lymphocytes (%) (Auto) 26 % (24-48) Monocytes (%) (Auto) 4 % (0-9) Eosinophils (%) (Auto) 5 % (0-3) Basophils (%) (Auto) 0 % (0-3) Neutrophils # (Auto) 3.9 x10^3/uL (1.8-7.7) Lymphocytes # (Auto) 1.5 x10^3/uL (1.0-4.8) Monocytes # (Auto) 0.2 x10^3/uL (0.0-1.1) Eosinophils # (Auto) 0.3 x10^3/uL (0.0-0.7) Basophils # (Auto) 0.0 x10^3/uL (0.0-0.2) Sodium Level 142 mmol/L (136-145) Potassium Level 4.1 mmol/L (3.5-5.1) Chloride Level 107 mmol/L (98-107) Carbon Dioxide Level 32 mmol/L (21-32) Anion Gap 3 (6-14) Blood Urea Nitrogen 8 mg/dL (7-20) Creatinine 0.8 mg/dL (0.6-1.0) Estimated GFR (Cockcroft-Gault) 74.2 Glucose Level 93 mg/dL (70-99) Calcium Level 8.4 mg/dL (8.5-10.1) Magnesium Level 2.0 mg/dL (1.8-2.4) Problem List Problems Medical Problems: (1) Cellulitis and abscess of other specified site Status: Acute Assessment/Plan wound care, abx will follow Justicifation of Admission Dx: Justifications for Admission: Justification of Admission Dx: N/A MARK STEINBERG MD 04/15/21 1312: SURGICAL PROGRESS NOTE Assessment/Plan Pt seen and examined. Agree with Ms. Hoyos's note Pt with c/o mild soreness ulcer stable, erythema less cont abx and wound care. LACEY HOYOS APRN Apr 15, 2021 11:03 MARK STEINBERG MD Apr 15, 2021 13:12
[2021-04-15] MEDS: DAPTOmycin (GENERIC) IVPB 480 MG in IV NORMAL SALINE 50ML 50 ML IV SCH (13:50)
[2021-04-15] MEDS: oxyCODONE IR 5 MG TABLET PO PRN (14:37)
[2021-04-15] MEDS: IV NORMAL SALINE 1000ML BAG 1,000 ML IV SCH (14:38)
--- NOTE | 2021-04-15 16:35 | NUR ---
Wound/Ostomy Care Wound Type/Assessment: Patient seen per wound care consult. See wound assessment. Patient has abscess/cellulitis to midline abdomen. Wound cleansed, assessed, and measured. There is a depth of 4.5cm. Wound flushed with saline and filter needle. We were able to express some pus from the wound. Patient requesting pain medication at this time, Saundra GARCIA here at bedside. Treatment Recommendations/Plan: Recommendations to pack with 1/4 inch Iodoform gauze packing and cover with ABD pad and tape. Change daily. Education provided: Patient educated on dressing changes and dressing supplies. Offloading surface/device: Patient is independent. Recommended Referrals/Tests: N/A Discharge Recommendations for dressings: Dressing change instructions left in room. No other wounds noted. Bed lowered and call light in reach. Wound care will follow up on 04/21/21.
[2021-04-15] MEDS ORDERED: HYDROmorphone 2 MG/ML VIAL IVP PRN (16:45)
[2021-04-15] MEDS ORDERED: diphenhydrAMINE HCL 25 MG CAPSULE PO PRN (19:15)
[2021-04-15] MEDS: ATORVASTATIN CALCIUM 40 MG TABLET. PO SCH (20:40)
[2021-04-15] MEDS: tiZANidine 4 MG TABLET. PO PRN (20:40)
[2021-04-16] VITALS (10 sets, daily range): BP systolic 101–130; BP diastolic 50–72
[2021-04-16] MEDS: PIPERACILLIN/TAZOBACTAM 3.375 GM in IV NORMAL SALINE 50ML 50 ML IV SCH ×5 (00:38→23:43)
[2021-04-16] MEDS: IV NORMAL SALINE 1000ML BAG 1,000 ML IV SCH ×3 (03:44→21:21)
[2021-04-16] MEDS: hydroCHLOROthiazide 12.5 MG CAPSULE PO SCH (09:00)
[2021-04-16] MEDS: DICLOFENAC SODIUM 1% TOPICAL GEL 100GM TUBE. TP SCH ×4 (09:00→21:26)
[2021-04-16] MEDS: lamoTRIgine 100 MG TABLET. PO SCH ×4 (09:00→21:22)
[2021-04-16] MEDS: CYCLOBENZAPRINE 10 MG TABLET. PO SCH (09:00)
[2021-04-16] MEDS: FOLIC ACID 1 MG TABLET. PO SCH (09:00)
[2021-04-16] MEDS: CITALOPRAM 20 MG TABLET. PO SCH (09:00)
[2021-04-16] MEDS: GABAPENTIN 300 MG CAPSULE. PO SCH ×2 (09:00→21:21)
[2021-04-16] MEDS: QUEtiapine 25 MG TABLET. PO SCH ×2 (09:00→21:21)
[2021-04-16] MEDS ORDERED: PROCHLORPERAZINE 10 MG/2 ML VIAL. IVP PRN (09:45)
[2021-04-16] MEDS ORDERED: fentaNYL PF VIAL 100 MCG/2 ML VIAL IVP PRN ×2 (09:45→13:00)
[2021-04-16] MEDS ORDERED: HYDROmorphone 2 MG/ML VIAL IVP PRN (09:45)
[2021-04-16] MEDS ORDERED: IV RINGERS,LACTATED 1000ML 1,000 ML IV SCH (09:45)
[2021-04-16] MEDS ORDERED: MORPHINE SULFATE 2 MG/ML VIAL. IVP PRN (09:45)
--- NOTE | 2021-04-16 10:36 | NUR ---
SW following. Discussed with RN, pt from home with family, room air, NPO, COVID-19 negative. Pt having an I&D today. SW awaiting further plan of care to determine discharge needs. SW will continue to follow.
--- NOTE | 2021-04-16 11:58 | PDOC ---
[employer] [facility] PROGRESS NOTE Date of Service DOS: DATE: 04/16/21 TIME: 11:57 Chief Complaint Chief Complaint Abdominal wall cellulitis, possible abscess formation Continue empiric IV antibiotics Pending ID evaluation Appreciate surgery recscontinue antibiotics and warm compresses and evaluate tomorrow morning. N.p.o. at midnight Lovenox for DVT prophylaxis Protonix GI prophylaxis ADA diet Full code Discussed with RN and SW Disposition inpatient management as above Surrogate decision maker is History of Present Illness History of Present Illness 04/16/2021 No acute events overnight. Guided by wound care and more purulence was expressed. Surgery recommend I&D and will plan for that later today. Pending wound cultures from purulent fluid so far preliminary shows staph aureus. Continue with IV antibiotics. Patient's chart, labs, images were reviewed and discussed with RN 04/15/2021 No acute events overnight. Patient feels okay today. A little bit tired. There is still active purulent drainage from the wound. Surgery considering possible debridement. Pending wound cultures from purulent fluid. Patient's chart, labs, images were reviewed and discussed with RN 04/14/2021 No acute events overnight. Patient's pain is well controlled. Abdominal wound has some decrease in redness but still has active draining pus in the midline. Will consult surgery for evaluation. Patient's chart, labs, images were reviewed and discussed with RADHA aldridge middle-aged female who presented to the ER with abdominal wound and abscess. Rates it is 7/10. She has associated weakness. She has been trying to care for at home. She took some Ultram and some [id number] meds. Symptoms now at 7/10. I discussed the case with ER physician. It appears the patient needs IV antibiotics. We are going to admit the patient, give her IV antibiotics and do some wound care. Vitals/I&O Vitals/I&O: Vital Signs Date Time Temp Pulse Resp B/P (MAP) Pulse Ox O2 Delivery O2 Flow Rate FiO2 04/16/21 07:00 97.8 67 17 115/67 (83) 98 Room Air 97.8 I & O 04/15/21 04/15/21 04/16/21 15:00 23:00 07:00 Intake Total 240 ml 300 ml 0 ml Balance 240 ml 300 ml 0 ml Physical Exam Physical Exam: GENERAL: Alert, oriented x 3 female, sitting upright in bed, in no acute distress, watching TV. HEENT: Normocephalic, atraumatic. Anicteric. No thrush. NECK: Supple, no JVD. LUNGS: Clear bilaterally. No wheezing. HEART: S1, S2. No gallops or murmurs. ABDOMEN: Obese. Erythema and swelling present over the anterior abdominal wall just below the umbilicus, above the suprapubic area receding from the previous markings. No fluctuance noted. Induration present. Some serosanguineous drainage. I was able to express purulent material today, mildly tender, no rebound or guarding. EXTREMITIES: No edema, no cyanosis. SKIN: Warm, dry, no generalized rash except for above. NEUROLOGIC: Alert, oriented x 3, grossly nonfocal. PSYCHIATRIC: Calm and cooperative. General: Alert, Cooperative Heart: Regular rate, Normal S1, Normal S2 Abdomen: Soft, Other (erythema is improved by markings, there is a central area of skin changes, induration, some drainage) Extremities: No clubbing, No cyanosis Skin: Other (erythema seems improved, skin ulceration central area) Labs Labs: Laboratory Tests Test 04/15/21 16:48 04/16/21 05:50 Glucose (Fingerstick) 144 mg/dL (70-99) Creatine Kinase 70 U/L (26-192) Assessment and Plan Assessmemt and Plan Problems Medical Problems: (1) Cellulitis and abscess of other specified site Status: Acute Comment Review of Relevant I have reviewed the following items mag (where applicable) has been applied. Medications: Current Medications Medications (Trade) Dose Ordered Sig/Rah Route PRN Reason Start Time Stop Time Status Last Admin Dose Admin Oxycodone HCl (Roxicodone) 5 mg PRN Q6HRS PRN PO SEVERE PAIN 2ND CHOICE 04/15/21 14:00 04/15/21 14:37 Sodium Chloride 1,000 ml @ 100 mls/hr Q10H IV 04/15/21 15:00 04/16/21 03:44 Hydromorphone HCl (Dilaudid) 0.4 mg 1X PRN IVP PAIN 04/15/21 16:45 04/16/21 10:16 DC 04/15/21 16:38 Diphenhydramine HCl (Benadryl) 25 mg PRN Q8HRS PRN PO ITCHING 04/15/21 19:15 04/15/21 19:10 Justifications for Admission Other Justification SPENCER BAPTISTE MD Apr 16, 2021 11:58
[2021-04-16] MEDS: DAPTOmycin (GENERIC) IVPB 480 MG in IV NORMAL SALINE 50ML 50 ML IV SCH (13:09)
--- NOTE | 2021-04-16 13:13 | PDOC ---
Infectious Disease Note Subjective: Subjective Patient feels about the same Abdominal swelling, pain and redness remains unchanged Denies fever, nausea, vomiting, shortness of breath, diarrhea, rash Otherwise as above Vital Signs: Vital Signs Vital Signs Date Time Temp Pulse Resp B/P (MAP) Pulse Ox O2 Delivery O2 Flow Rate FiO2 04/16/21 13:07 96 Room Air 04/16/21 11:00 97.8 61 17 129/60 (83) 97.8 Physical Exam: PHYSICAL EXAM GENERAL: Alert, oriented x 3 female, sitting upright in bed, in no acute distress, watching TV. HEENT: Normocephalic, atraumatic. Anicteric. No thrush. NECK: Supple, no JVD. LUNGS: Clear bilaterally. No wheezing. HEART: S1, S2. No gallops or murmurs. ABDOMEN: Obese. Erythema and swelling present over the anterior abdominal wall just below the umbilicus, above the suprapubic area receding from the previous markings. Induration present. EXTREMITIES: No edema, no cyanosis. SKIN: Warm, dry, no generalized rash except for above. NEUROLOGIC: Alert, oriented x 3, grossly nonfocal. PSYCHIATRIC: Calm and cooperative. Medications: Inpatient Meds: Medications reviewed. Labs: Lab Laboratory Tests Test 04/15/21 16:48 04/16/21 05:50 Glucose (Fingerstick) 144 mg/dL (70-99) Creatine Kinase 70 U/L (26-192) Objective: Assessment: 1. Abdominal wall abscess with cellulitis swab cult staph aureus 2. Rheumatoid arthritis, on DMARD. 3. Anxiety, depression. 4. History of hernia repair. No foreign material per patient report. 5. Marijuana dependence. Plan: Plan of Care 1. Continue daptomycin and Zosyn. April 14, 2021 2. Follow up labs and cultures.f/u staph aureus 3. Continue local wound care. 4. General surgery following 5. Awaiting surgery later today 6. Continue supportive care. Send intraoperative fluid for cultures Discussed with nursing staff MIKHAIL LARIOS MD Apr 16, 2021 13:13
[2021-04-16] MEDS ORDERED: fentaNYL PF VIAL 100 MCG/2 ML VIAL ONE ×2 (18:22→19:42)
[2021-04-16] MEDS: fentaNYL PF VIAL 100 MCG/2 ML VIAL IVP PRN ×2 (18:24→20:43)
[2021-04-16] MEDS ORDERED: ONDANSETRON PF 4 MG/2 ML VIAL. ONE (18:37)
[2021-04-16] MEDS ORDERED: PROPOFOL 10 MG/ML (20ML) VIAL. IV ONE (18:37)
[2021-04-16] MEDS ORDERED: LIDOCAINE 2% PF 5 ML VIAL. ONE (18:37)
[2021-04-16] MEDS ORDERED: DEXAMETHASONE SOD PHOS 4 MG/ML VIAL ONE (18:37)
--- NOTE | 2021-04-16 18:52 | PDOC ---
SURGICAL PROGRESS NOTE DATE: 04/16/21 TIME: 18:51 Subjective Pre-Op Note 55 yo F with abdominal wall abscess TO OR for washout and debridement R/R/B/A d/w pt. Vital Signs Vital Signs Date Time Temp Pulse Resp B/P (MAP) Pulse Ox O2 Delivery O2 Flow Rate FiO2 04/16/21 18:32 67 22 150/77 97 Room Air 04/16/21 18:28 97.8 97.8 I&O Intake and Output 04/16/21 07:00 Intake Total 540 ml Balance 540 ml Intake Oral 540 ml # Voids 1 Labs Laboratory Tests Test 04/15/21 07:10 04/15/21 08:30 04/15/21 16:48 04/16/21 05:50 Glucose (Fingerstick) 84 mg/dL (70-99) 144 mg/dL (70-99) White Blood Count 6.0 x10^3/uL (4.0-11.0) Red Blood Count 3.49 x10^6/uL (3.50-5.40) Hemoglobin 12.1 g/dL (12.0-15.5) Hematocrit 35.9 % (36.0-47.0) Mean Corpuscular Volume 103 fL (79-100) Mean Corpuscular Hemoglobin 35 pg (25-35) Mean Corpuscular Hemoglobin Concent 34 g/dL (31-37) Red Cell Distribution Width 14.4 % (11.5-14.5) Platelet Count 210 x10^3/uL (140-400) Neutrophils (%) (Auto) 66 % (31-73) Lymphocytes (%) (Auto) 26 % (24-48) Monocytes (%) (Auto) 4 % (0-9) Eosinophils (%) (Auto) 5 % (0-3) Basophils (%) (Auto) 0 % (0-3) Neutrophils # (Auto) 3.9 x10^3/uL (1.8-7.7) Lymphocytes # (Auto) 1.5 x10^3/uL (1.0-4.8) Monocytes # (Auto) 0.2 x10^3/uL (0.0-1.1) Eosinophils # (Auto) 0.3 x10^3/uL (0.0-0.7) Basophils # (Auto) 0.0 x10^3/uL (0.0-0.2) Sodium Level 142 mmol/L (136-145) Potassium Level 4.1 mmol/L (3.5-5.1) Chloride Level 107 mmol/L (98-107) Carbon Dioxide Level 32 mmol/L (21-32) Anion Gap 3 (6-14) Blood Urea Nitrogen 8 mg/dL (7-20) Creatinine 0.8 mg/dL (0.6-1.0) Estimated GFR (Cockcroft-Gault) 74.2 Glucose Level 93 mg/dL (70-99) Calcium Level 8.4 mg/dL (8.5-10.1) Magnesium Level 2.0 mg/dL (1.8-2.4) Creatine Kinase 70 U/L (26-192) Laboratory Tests Test 04/16/21 05:50 Creatine Kinase 70 U/L (26-192) Problem List Problems Medical Problems: (1) Cellulitis and abscess of other specified site Status: Acute Justicifation of Admission Dx: Justifications for Admission: Justification of Admission Dx: N/A MARK STEINBERG MD Apr 16, 2021 18:52
[2021-04-16] MEDS ORDERED: BUPIVACAINE-EPI 0.5%-1:200000 MPF 30 ML VIAL. ONE (19:54)
[2021-04-16] MEDS ORDERED: SEVOFLURANE 31 TO 60 MINUTES. IH ONE (20:00)
[2021-04-16] MEDS ORDERED: HYDROcodone/APAP 5/325MG 1 TAB TABLET PO PRN (20:15)
[2021-04-16] MEDS ORDERED: NALOXONE 0.4 MG/ML VIAL. IV PRN (20:15)
[2021-04-16] MEDS ORDERED: ONDANSETRON PF 4 MG/2 ML VIAL. IVP PRN (20:15)
[2021-04-16] MEDS ORDERED: 0.9 % SODIUM CHLORIDE 10 ML DISP.SYRIN. IV PRN (20:15)
[2021-04-16] MEDS ORDERED: IV NORMAL SALINE 1000ML BAG 1,000 ML IV SCH (20:15)
--- NOTE | 2021-04-16 20:20 | PDOC4 ---
OPERATIVE NOTE Date: Date: Apr 16, 2021 Pre-Op Diagnosis: Abdominal wall abscess Post-Op Diagnosis: same Procedure Performed: Excisional debridement of skin and subcutaneous tissues Surgeon: Shadi Steinberg Anesthesia Type: MAC plus local Blood Loss: 10 Specimans Obtained: cultures and abdominal wall abscess Findings: necrotic abscess of skin and subcutaneous tissues of midline abdominal wall/pannus Complications: none Operative Note: After obtaining informed consent, patient was taken to OR, induced under GETA and prepped in the usual fashion. Abdominal wall abscess identified and excised with cautery in transverse eliptical fashion down through skin and subcutaneous tissues, approximately 5 x 3 x 3. This was sent to pathology and cultures were obtained. Hemostasis was obtained with cautery. Counter incision was made with cautery to the right and sherice was placed and secured with 3 0 nylon. Wound was packed with iodoform gauze. Dressing was placed. Patient tolerated procedure well and sent to PACU in stable condition. All counts correct. Wound class was 4, dirty. MARK STEINBERG MD Apr 16, 2021 20:20
--- NOTE | 2021-04-16 21:16 | NUR ---
Patient returned from PACU to unit at 2100; report rcvd. from [facility]. Patient in bed eating, call light within reach and no other needs voiced at this time.
[2021-04-16] MEDS: ATORVASTATIN CALCIUM 40 MG TABLET. PO SCH (21:21)
[2021-04-16] MEDS: DOCUSATE SODIUM 100 MG CAPSULE. PO SCH (21:21)
[2021-04-16] MEDS: oxyCODONE IR 5 MG TABLET PO PRN (23:44)
[2021-04-17] VITALS (8 sets, daily range): BP systolic 94–128; BP diastolic 53–82
[2021-04-17] MEDS: oxyCODONE/APAP 5/325 1 TAB TABLET PO PRN ×3 (04:38→18:04)
[2021-04-17] MEDS: PIPERACILLIN/TAZOBACTAM 3.375 GM in IV NORMAL SALINE 50ML 50 ML IV SCH ×3 (06:14→18:04)
[2021-04-17] MEDS: IV NORMAL SALINE 1000ML BAG 1,000 ML IV SCH ×3 (06:14→22:56)
[2021-04-17] MEDS: oxyCODONE IR 5 MG TABLET PO PRN ×2 (06:51→20:15)
--- NOTE | 2021-04-17 07:39 | PDOC ---
Infectious Disease Note Subjective: Subjective pt says feels better Vital Signs: Vital Signs Vital Signs Date Time Temp Pulse Resp B/P (MAP) Pulse Ox O2 Delivery O2 Flow Rate FiO2 04/17/21 06:51 16 Room Air 04/17/21 04:38 98 04/17/21 03:20 97.8 64 128/62 (84) 97.8 04/16/21 20:23 8 Physical Exam: PHYSICAL EXAM GENERAL: Alert, oriented x 3 female, sitting upright in bed, in no acute distress, watching TV. HEENT: Normocephalic, atraumatic. Anicteric. No thrush. NECK: Supple, no JVD. LUNGS: Clear bilaterally. No wheezing. HEART: S1, S2. No gallops or murmurs. ABDOMEN: Obese. Bowel sounds present, intraoperative dressing intact dry not taken down Surrounding erythema and induration has been receding from previous markings EXTREMITIES: No edema, no cyanosis. SKIN: Warm, dry, no generalized rash except for above. NEUROLOGIC: Alert, oriented x 3, grossly nonfocal. PSYCHIATRIC: Calm and cooperative. Medications: Inpatient Meds: Medications reviewed. Objective: Assessment: 1. Abdominal wall abscess with cellulitis swab cult staph aureus April 16, 2021 Excisional debridement of skin and subcutaneous tissues Intraoperative cultures pending 2. Rheumatoid arthritis, on DMARD. 3. Anxiety, depression. 4. History of hernia repair. No foreign material per patient report. 5. Marijuana dependence. Plan: Plan of Care 1. Continue daptomycin and Zosyn. April 14, 2021 2. Follow up labs and cultures.fwab cultures positive staph aureus 3. Continue local wound care as directed. 4. Follow-up intraoperative cultures Discussed with nursing staff MIKHAIL LARIOS MD Apr 17, 2021 07:39
[2021-04-17] MEDS: DOCUSATE SODIUM 100 MG CAPSULE. PO SCH ×2 (08:47→21:31)
[2021-04-17] MEDS: CITALOPRAM 20 MG TABLET. PO SCH (08:47)
[2021-04-17] MEDS: lamoTRIgine 100 MG TABLET. PO SCH ×4 (08:47→21:31)
[2021-04-17] MEDS: FOLIC ACID 1 MG TABLET. PO SCH (08:47)
[2021-04-17] MEDS: CYCLOBENZAPRINE 10 MG TABLET. PO SCH (08:47)
[2021-04-17] MEDS: hydroCHLOROthiazide 12.5 MG CAPSULE PO SCH (08:47)
[2021-04-17] MEDS: GABAPENTIN 300 MG CAPSULE. PO SCH ×2 (08:47→21:31)
[2021-04-17] MEDS: QUEtiapine 25 MG TABLET. PO SCH ×2 (08:47→21:31)
[2021-04-17] MEDS: DICLOFENAC SODIUM 1% TOPICAL GEL 100GM TUBE. TP SCH ×4 (08:48→20:11)
--- NOTE | 2021-04-17 09:52 | PDOC ---
Infectious Disease Note Subjective: Subjective Patient underwent I&D of abdominal wall abscess yesterday Postoperative pain is under control Denies fever, nausea, vomiting, shortness of breath, diarrhea, rash Otherwise as above Vital Signs: Vital Signs Vital Signs Date Time Temp Pulse Resp B/P (MAP) Pulse Ox O2 Delivery O2 Flow Rate FiO2 04/17/21 07:38 Room Air 04/17/21 07:00 97.8 66 18 108/66 (80) 95 97.8 04/16/21 20:23 8 Physical Exam: PHYSICAL EXAM GENERAL: Alert, oriented x 3 female, sitting upright in bed, in no acute distress, watching TV. HEENT: Normocephalic, atraumatic. Anicteric. No thrush. NECK: Supple, no JVD. LUNGS: Clear bilaterally. No wheezing. HEART: S1, S2. No gallops or murmurs. ABDOMEN: Obese. Bowel sounds present, intraoperative dressing intact dry not taken down Surrounding erythema and induration has been receding from previous markings EXTREMITIES: No edema, no cyanosis. SKIN: Warm, dry, no generalized rash except for above. NEUROLOGIC: Alert, oriented x 3, grossly nonfocal. PSYCHIATRIC: Calm and cooperative. Medications: Inpatient Meds: Medications reviewed. Objective: Assessment: 1. Abdominal wall abscess with cellulitis swab cult staph aureus April 16, 2021 Excisional debridement of skin and subcutaneous tissues Intraoperative cultures pending 2. Rheumatoid arthritis, on DMARD. 3. Anxiety, depression. 4. History of hernia repair. No foreign material per patient report. 5. Marijuana dependence. Plan: Plan of Care 1. Continue daptomycin and Zosyn. April 14, 2021 2. Follow up labs and cultures.fwab cultures positive staph aureus 3. Continue local wound care as directed. 4. Follow-up intraoperative cultures Discussed with nursing staff MIKHAIL LARIOS MD Apr 17, 2021 09:52
[2021-04-17] MEDS: DAPTOmycin (GENERIC) IVPB 480 MG in IV NORMAL SALINE 50ML 50 ML IV SCH (11:26)
--- NOTE | 2021-04-17 12:37 | PDOC ---
[facility] PROGRESS NOTE Date of Service DOS: DATE: 04/17/21 TIME: 12:35 Chief Complaint Chief Complaint Abdominal wall cellulitis, possible abscess formation status post excisional debridement and Brandy drain placement 04/16/2021 MRSA infection of the abscess wound from cultures of 04/15/2021 Continue empiric IV antibiotics Pending ID evaluation Appreciate surgery recscontinue antibiotics and warm compresses and evaluate tomorrow morning. N.p.o. at midnight Lovenox for DVT prophylaxis Protonix GI prophylaxis ADA diet Full code Discussed with RN and SW Disposition inpatient management as above Surrogate decision maker is History of Present Illness History of Present Illness 04/17/2021 No acute events overnight. Patient's pain is well controlled. Tolerating diet without any complications. Ambulated without any difficulties. Dressings without any strikethrough or soakage. Patient's chart, labs, images were reviewed and discussed with RN 04/16/2021 No acute events overnight. Guided by wound care and more purulence was expressed. Surgery recommend I&D and will plan for that later today. Pending wound cultures from purulent fluid so far preliminary shows staph aureus. Continue with IV antibiotics. Patient's chart, labs, images were reviewed and discussed with RN 04/15/2021 No acute events overnight. Patient feels okay today. A little bit tired. There is still active purulent drainage from the wound. Surgery considering possible debridement. Pending wound cultures from purulent fluid. Patient's chart, labs, images were reviewed and discussed with RN 04/14/2021 No acute events overnight. Patient's pain is well controlled. Abdominal wound has some decrease in redness but still has active draining pus in the midline. Will consult surgery for evaluation. Patient's chart, labs, images were reviewed and discussed with RADHA aldridge middle-aged female who presented to the ER with abdominal wound and abscess. Rates it is 7/10. She has associated weakness. She has been trying to care for at home. She took some Ultram and some [id number] meds. Symptoms now at 7/10. I discussed the case with ER physician. It appears the patient needs IV antibiotics. We are going to admit the patient, give her IV antibiotics and do some wound care. Vitals/I&O Vitals/I&O: Vital Signs Date Time Temp Pulse Resp B/P (MAP) Pulse Ox O2 Delivery O2 Flow Rate FiO2 04/17/21 10:34 97.3 65 18 123/82 (96) 92 Room Air 97.3 04/16/21 20:23 8 I & O 04/16/21 04/16/21 04/17/21 15:00 23:00 07:00 Intake Total 1100 ml 250 ml 900 ml Output Total 10 ml Balance 1100 ml 240 ml 900 ml Physical Exam Physical Exam: GENERAL: Alert, oriented x 3 female, sitting upright in bed, in no acute distress, watching TV. HEENT: Normocephalic, atraumatic. Anicteric. No thrush. NECK: Supple, no JVD. LUNGS: Clear bilaterally. No wheezing. HEART: S1, S2. No gallops or murmurs. ABDOMEN: Obese. Bowel sounds present, intraoperative dressing intact dry not taken down Surrounding erythema and induration has been receding from previous markings EXTREMITIES: No edema, no cyanosis. SKIN: Warm, dry, no generalized rash except for above. NEUROLOGIC: Alert, oriented x 3, grossly nonfocal. PSYCHIATRIC: Calm and cooperative. General: Alert, Cooperative Heart: Regular rate, Normal S1, Normal S2 Abdomen: Soft, Other (erythema is improved by markings, there is a central area of skin changes, induration, some drainage) Extremities: No clubbing, No cyanosis Skin: Other (erythema seems improved, skin ulceration central area) Assessment and Plan Assessmemt and Plan Problems Medical Problems: (1) Cellulitis and abscess of other specified site Status: Acute Comment Review of Relevant I have reviewed the following items mag (where applicable) has been applied. Medications: Current Medications Medications (Trade) Dose Ordered Sig/Rah Route PRN Reason Start Time Stop Time Status Last Admin Dose Admin Fentanyl Citrate (Fentanyl 2ml Vial) 25 mcg PRN Q2HR PRN IVP PAIN 04/16/21 13:00 04/16/21 13:07 Bupivacaine HCl/ Epinephrine Bitart (Sensorcain-Epi 0.5%-1:607000 Mpf) 30 ml STK-MED ONCE .ROUTE 04/16/21 19:54 04/16/21 19:54 DC 04/16/21 19:50 Acetaminophen/ Hydrocodone Bitart (Lortab 5/325) 1 tab PRN Q4HRS PRN PO MILD PAIN 1-3 04/16/21 20:15 6/4/21 21:22 Docusate Sodium (Colace) 100 mg BID PO 04/16/21 21:00 04/17/21 08:47 Justifications for Admission Other Justification SPENCER BAPTISTE MD Apr 17, 2021 12:37
--- NOTE | 2021-04-17 18:08 | PDOC ---
SURGICAL PROGRESS NOTE DATE: 04/17/21 TIME: 18:07 Subjective Pt with some incisional pain, but feels better Vital Signs Vital Signs Date Time Temp Pulse Resp B/P (MAP) Pulse Ox O2 Delivery O2 Flow Rate FiO2 04/17/21 14:29 98.4 64 18 119/53 (75) 100 Room Air 98.4 04/16/21 20:23 8 I&O Intake and Output 04/17/21 07:00 Intake Total 2250 ml Output Total 10 ml Balance 2240 ml Intake Oral 850 ml IV Total 1400 ml Output Estimated Blood Loss 10 ml # Voids 3 General: Alert, No acute distress Abdomen: Soft, Other (dressing intact) Labs Laboratory Tests Test 04/16/21 05:50 Creatine Kinase 70 U/L (26-192) Problem List Problems Medical Problems: (1) Cellulitis and abscess of other specified site Status: Acute Assessment/Plan s/p abd wall debridement cont wound care and abx Justicifation of Admission Dx: Justifications for Admission: Justification of Admission Dx: N/A MARK STEINBERG MD Apr 17, 2021 18:08
[2021-04-17] MEDS: ATORVASTATIN CALCIUM 40 MG TABLET. PO SCH (21:31)
[2021-04-18] MEDS: PIPERACILLIN/TAZOBACTAM 3.375 GM in IV NORMAL SALINE 50ML 50 ML IV SCH ×4 (00:24→17:34)
[2021-04-18 04:35] VITALS: BP 108/69
[2021-04-18 07:00] VITALS: BP 127/64
[2021-04-18] MEDS: DICLOFENAC SODIUM 1% TOPICAL GEL 100GM TUBE. TP SCH ×4 (09:00→21:38)
[2021-04-18] MEDS: CYCLOBENZAPRINE 10 MG TABLET. PO SCH (09:17)
[2021-04-18] MEDS: lamoTRIgine 100 MG TABLET. PO SCH ×4 (09:17→21:37)
[2021-04-18] MEDS: FOLIC ACID 1 MG TABLET. PO SCH (09:17)
[2021-04-18] MEDS: DOCUSATE SODIUM 100 MG CAPSULE. PO SCH ×2 (09:17→21:38)
[2021-04-18] MEDS: hydroCHLOROthiazide 12.5 MG CAPSULE PO SCH (09:17)
[2021-04-18] MEDS: CITALOPRAM 20 MG TABLET. PO SCH (09:17)
[2021-04-18] MEDS: QUEtiapine 25 MG TABLET. PO SCH ×2 (09:17→21:38)
[2021-04-18] MEDS: GABAPENTIN 300 MG CAPSULE. PO SCH ×2 (09:17→21:38)
[2021-04-18] MEDS: oxyCODONE/APAP 5/325 1 TAB TABLET PO PRN ×2 (09:18→16:48)
--- NOTE | 2021-04-18 09:23 | PDOC ---
Infectious Disease Note Subjective: Subjective Patient is without complaints Postop pain is under control Denies fever, nausea, vomiting, shortness of breath, diarrhea, rash Otherwise as above Vital Signs: Vital Signs Vital Signs Date Time Temp Pulse Resp B/P (MAP) Pulse Ox O2 Delivery O2 Flow Rate FiO2 04/18/21 08:28 Room Air 04/18/21 07:00 98.4 64 16 127/64 (85) 96 98.4 Physical Exam: PHYSICAL EXAM GENERAL: Alert, oriented x 3 female, sitting upright in bed, in no acute distress, watching TV. HEENT: Normocephalic, atraumatic. Anicteric. No thrush. NECK: Supple, no JVD. LUNGS: Clear bilaterally. No wheezing. HEART: S1, S2. No gallops or murmurs. ABDOMEN: Obese. Bowel sounds present, intraoperative dressing intact dry not taken down Surrounding erythema and induration has been receding from previous markings EXTREMITIES: No edema, no cyanosis. SKIN: Warm, dry, no generalized rash except for above. NEUROLOGIC: Alert, oriented x 3, grossly nonfocal. PSYCHIATRIC: Calm and cooperative. Medications: Inpatient Meds: Medications reviewed. Objective: Assessment: 1. Abdominal wall abscess with cellulitis swab cult staph aureus April 16, 2021 Excisional debridement of skin and subcutaneous tissues Intraoperative cultures pending 2. Rheumatoid arthritis, on DMARD. 3. Anxiety, depression. 4. History of hernia repair. No foreign material per patient report. 5. Marijuana dependence. Plan: Plan of Care 1. Continue daptomycin and Zosyn. April 14, 2021 2. Follow up labs and cultures.fwab cultures positive staph aureus 3. Continue local wound care as directed. 4. Follow-up intraoperative cultures Discussed with nursing staff MIKHAIL LARIOS MD Apr 18, 2021 09:23
--- NOTE | 2021-04-18 09:39 | PDOC ---
[facility] PROGRESS NOTE Date of Service DOS: DATE: 04/18/21 TIME: 09:38 Chief Complaint Chief Complaint Abdominal wall cellulitis, possible abscess formation status post excisional debridement and Brandy drain placement 04/16/2021 MRSA infection of the abscess wound from cultures of 04/15/2021 History of rheumatoid arthritis on DMARD History of depression anxiety History of umbilical hernia repair Continue empiric IV antibiotics Appreciate ID Rexcontinue with Dapto and Zosyn and follow-up with sensitivities of MRSA and will adjust regimen as needed Appreciate surgery recscontinue antibiotics and wound care N.p.o. at midnight Lovenox for DVT prophylaxis Protonix GI prophylaxis ADA diet Full code Discussed with RN and SW Disposition inpatient management as above Surrogate decision maker is History of Present Illness History of Present Illness 04/18/2021 No acute events overnight. Pain is well controlled. Patient seen and examined bedside. Surgical wound site without any active bleeding or purulent drainage. Patient's chart, labs, images were reviewed and discussed with RN 04/17/2021 No acute events overnight. Patient's pain is well controlled. Tolerating diet without any complications. Ambulated without any difficulties. Dressings without any strikethrough or soakage. Patient's chart, labs, images were reviewed and discussed with RN 04/16/2021 No acute events overnight. Guided by wound care and more purulence was expressed. Surgery recommend I&D and will plan for that later today. Pending wound cultures from purulent fluid so far preliminary shows staph aureus. Continue with IV antibiotics. Patient's chart, labs, images were reviewed and discussed with RN 04/15/2021 No acute events overnight. Patient feels okay today. A little bit tired. There is still active purulent drainage from the wound. Surgery considering possible debridement. Pending wound cultures from purulent fluid. Patient's chart, labs, images were reviewed and discussed with RN 04/14/2021 No acute events overnight. Patient's pain is well controlled. Abdominal wound has some decrease in redness but still has active draining pus in the midline. Will consult surgery for evaluation. Patient's chart, labs, images were reviewed and discussed with RADHA aldridge middle-aged female who presented to the ER with abdominal wound and abscess. Rates it is 7/10. She has associated weakness. She has been trying to care for at home. She took some Ultram and some [id number] meds. Symptoms now at 7/10. I discussed the case with ER physician. It appears the patient needs IV antibiotics. We are going to admit the patient, give her IV antibiotics and do some wound care. Vitals/I&O Vitals/I&O: Vital Signs Date Time Temp Pulse Resp B/P (MAP) Pulse Ox O2 Delivery O2 Flow Rate FiO2 04/18/21 08:28 Room Air 04/18/21 07:00 98.4 64 16 127/64 (85) 96 98.4 I & O 04/17/21 04/17/21 04/18/21 15:00 23:00 07:00 Intake Total 1580 ml 1000 ml 550 ml Balance 1580 ml 1000 ml 550 ml Physical Exam Physical Exam: GENERAL: Alert, oriented x 3 female, sitting upright in bed, in no acute distress, watching TV. HEENT: Normocephalic, atraumatic. Anicteric. No thrush. NECK: Supple, no JVD. LUNGS: Clear bilaterally. No wheezing. HEART: S1, S2. No gallops or murmurs. ABDOMEN: Obese. Bowel sounds present, intraoperative dressing intact dry not taken down Surrounding erythema and induration has been receding from previous markings EXTREMITIES: No edema, no cyanosis. SKIN: Warm, dry, no generalized rash except for above. NEUROLOGIC: Alert, oriented x 3, grossly nonfocal. PSYCHIATRIC: Calm and cooperative. General: Alert, No acute distress Heart: Regular rate, Normal S1, Normal S2 Abdomen: Soft, Other (dressing intact) Extremities: No clubbing, No cyanosis Skin: Other (erythema seems improved, skin ulceration central area) Assessment and Plan Assessmemt and Plan Problems Medical Problems: (1) Cellulitis and abscess of other specified site Status: Acute Comment Review of Relevant I have reviewed the following items mag (where applicable) has been applied. Justifications for Admission Other Justification SPENCER BAPTISTE MD Apr 18, 2021 09:39
[2021-04-18] MEDS: IV NORMAL SALINE 1000ML BAG 1,000 ML IV SCH (10:27)
[2021-04-18 11:00] VITALS: BP 139/54
[2021-04-18] MEDS: DAPTOmycin (GENERIC) IVPB 480 MG in IV NORMAL SALINE 50ML 50 ML IV SCH (12:16)
--- NOTE | 2021-04-18 14:12 | PDOC ---
SURGICAL PROGRESS NOTE DATE: 04/18/21 TIME: 14:12 Subjective Pt in bathroom on rounds will f/u in AM cont wound care Vital Signs Vital Signs Date Time Temp Pulse Resp B/P (MAP) Pulse Ox O2 Delivery O2 Flow Rate FiO2 04/18/21 11:00 97.9 67 16 139/54 (82) 95 Room Air 97.9 I&O Intake and Output 04/18/21 07:00 Intake Total 3130 ml Balance 3130 ml Intake Oral 480 ml IV Total 2650 ml # Voids 4 # Bowel Movements 1 Problem List Problems Medical Problems: (1) Cellulitis and abscess of other specified site Status: Acute Justicifation of Admission Dx: Justifications for Admission: Justification of Admission Dx: N/A MARK STEINBERG MD Apr 18, 2021 14:12
[2021-04-18 15:00] VITALS: BP 109/61
[2021-04-18 19:23] VITALS: BP 104/57
[2021-04-18] MEDS: oxyCODONE IR 5 MG TABLET PO PRN (19:29)
[2021-04-18] MEDS: ATORVASTATIN CALCIUM 40 MG TABLET. PO SCH (21:38)
[2021-04-18 22:43] VITALS: BP 129/62
[2021-04-19] MEDS: PIPERACILLIN/TAZOBACTAM 3.375 GM in IV NORMAL SALINE 50ML 50 ML IV SCH ×2 (00:05→05:56)
[2021-04-19] MEDS: oxyCODONE/APAP 5/325 1 TAB TABLET PO PRN ×2 (00:06→09:58)
[2021-04-19 02:53] VITALS: BP 128/68
[2021-04-19] MEDS: IV NORMAL SALINE 1000ML BAG 1,000 ML IV SCH ×2 (03:47→09:00)
[2021-04-19 07:00] VITALS: BP 110/66
--- NOTE | 2021-04-19 07:29 | NUR ---
IP: Pt is mrsa + in wound requiring contact precautions.
[2021-04-19] MEDS: FOLIC ACID 1 MG TABLET. PO SCH (08:28)
[2021-04-19] MEDS: DOCUSATE SODIUM 100 MG CAPSULE. PO SCH (08:28)
[2021-04-19] MEDS: CYCLOBENZAPRINE 10 MG TABLET. PO SCH (08:28)
[2021-04-19] MEDS: QUEtiapine 25 MG TABLET. PO SCH (08:28)
[2021-04-19] MEDS: hydroCHLOROthiazide 12.5 MG CAPSULE PO SCH (08:28)
[2021-04-19] MEDS: GABAPENTIN 300 MG CAPSULE. PO SCH (08:28)
[2021-04-19] MEDS: lamoTRIgine 100 MG TABLET. PO SCH ×3 (08:28→16:48)
[2021-04-19] MEDS: CITALOPRAM 20 MG TABLET. PO SCH (08:29)
[2021-04-19] MEDS: DICLOFENAC SODIUM 1% TOPICAL GEL 100GM TUBE. TP SCH ×3 (08:29→16:48)
--- NOTE | 2021-04-19 09:41 | PDOC ---
Infectious Disease Note Subjective Subjective pt says feels better Vital Sign Vital Signs Vital Signs Date Time Temp Pulse Resp B/P (MAP) Pulse Ox O2 Delivery O2 Flow Rate FiO2 04/19/21 07:00 98.5 65 18 110/66 (81) 94 Room Air 98.5 Physical Exam PHYSICAL EXAM GENERAL: Alert, oriented x 3 female, sitting upright in bed, in no acute distress, watching TV. HEENT: Normocephalic, atraumatic. Anicteric. No thrush. NECK: Supple, no JVD. LUNGS: Clear bilaterally. No wheezing. HEART: S1, S2. No gallops or murmurs. ABDOMEN: Obese. Bowel sounds present, intraoperative dressing intact dry not taken down Surrounding erythema and induration has been receding from previous markings EXTREMITIES: No edema, no cyanosis. SKIN: Warm, dry, no generalized rash except for above. NEUROLOGIC: Alert, oriented x 3, grossly nonfocal. PSYCHIATRIC: Calm and cooperative. Labs Micro Microbiology 04/16/21 Gram Stain - Final, Resulted 04/16/21 Aerobic and Anaerobic Culture - Preliminary, Resulted 04/13/21 Blood Culture - Final, Complete NO GROWTH AFTER 5 DAYS Objective Assessment 1. Abdominal wall abscess with cellulitis swab cult staph aureus April 16, 2021 Excisional debridement of skin and subcutaneous tissues Intraoperative cultures pending 2. Rheumatoid arthritis, on DMARD. 3. Anxiety, depression. 4. History of hernia repair. No foreign material per patient report. 5. Marijuana dependence. Plan Plan of Care 1. change antibiotics to po zyvox, wound vac , d/c ok 2. Follow up labs and cultures.fwab cultures positive staph aureus 3. Continue local wound care as directed. 4. Follow-up intraoperative cultures Discussed with nursing staff SHARRI LARIOS MD Apr 19, 2021 09:41
--- NOTE | 2021-04-19 10:51 | NUR ---
SW following. Discussed with RN, pt from home with family, room air, regular diet, COVID-[address] Arambula has switched abx to oral abx, and okay with discharge. SW awaiting confirmation of whether pt will discharge home today or not. RN advised no SW needs at this time. SW will continue to follow.
[2021-04-19 10:53] VITALS: BP 100/64
--- NOTE | 2021-04-19 11:35 | PDOC ---
[facility] [facility] PROGRESS NOTE Date of Service DOS: DATE: 04/19/21 TIME: 11:13 Chief Complaint Chief Complaint Abdominal wall cellulitis, possible abscess formation status post excisional debridement and Brandy drain placement 04/16/2021 MRSA infection of the abscess wound from cultures of 04/15/2021 History of rheumatoid arthritis on DMARD History of depression anxiety History of umbilical hernia repair. No foreign material per patient report. Anxiety, depression. Marijuana dependence. Continue empiric IV antibiotics Appreciate ID Rexcontinue with Dapto and Zosyn and follow-up with sensitivities of MRSA and will adjust regimen as needed Appreciate surgery recscontinue antibiotics and wound care N.p.o. at midnight Lovenox for DVT prophylaxis Protonix GI prophylaxis ADA diet Full code Discussed with RN and SW Disposition inpatient management as above Surrogate decision maker is History of Present Illness History of Present Illness Afebrile. No overnight events. Good wound drainage. Changed p.o. Zyvox per ID recommendations. Awaiting wound care. 04/18/2021 No acute events overnight. Pain is well controlled. Patient seen and examined bedside. Surgical wound site without any active bleeding or purulent drainage. Patient's chart, labs, images were reviewed and discussed with RN 04/17/2021 No acute events overnight. Patient's pain is well controlled. Tolerating diet without any complications. Ambulated without any difficulties. Dressings without any strikethrough or soakage. Patient's chart, labs, images were reviewed and discussed with RN 04/16/2021 No acute events overnight. Guided by wound care and more purulence was expressed. Surgery recommend I&D and will plan for that later today. Pending wound cultures from purulent fluid so far preliminary shows staph aureus. Continue with IV antibiotics. Patient's chart, labs, images were reviewed and discussed with RN 04/15/2021 No acute events overnight. Patient feels okay today. A little bit tired. There is still active purulent drainage from the wound. Surgery considering possible debridement. Pending wound cultures from purulent fluid. Patient's chart, labs, images were reviewed and discussed with RN 04/14/2021 No acute events overnight. Patient's pain is well controlled. Abdominal wound has some decrease in redness but still has active draining pus in the midline. Will consult surgery for evaluation. Patient's chart, labs, images were reviewed and discussed with RN pleasant middle-aged female who presented to the ER with abdominal wound and abscess. Rates it is 05/22. She has associated weakness. She has been trying to care for at home. She took some Ultram and some [id number]-[id number] meds. Symptoms now at 05/22. I discussed the case with ER physician. It appears the patient needs IV antibiotics. We are going to admit the patient, give her IV antibiotics and do some wound care. Vitals/I&O Vitals/I&O: Vital Signs Date Time Temp Pulse Resp B/P (MAP) Pulse Ox O2 Delivery O2 Flow Rate FiO2 04/19/21 10:53 98.8 76 18 100/64 (76) 96 Room Air 98.8 I & O 04/18/21 04/18/21 04/19/21 15:00 23:00 07:00 Intake Total 600 ml 390 ml 0 ml Balance 600 ml 390 ml 0 ml Physical Exam Physical Exam: GENERAL: Alert, oriented x 3 female, sitting upright in bed, in no acute distress, watching TV. HEENT: Normocephalic, atraumatic. Anicteric. No thrush. NECK: Supple, no JVD. LUNGS: Clear bilaterally. No wheezing. HEART: S1, S2. No gallops or murmurs. ABDOMEN: Obese. Bowel sounds present, intraoperative dressing intact dry not taken down Surrounding erythema and induration has been receding from previous markings EXTREMITIES: No edema, no cyanosis. SKIN: Warm, dry, no generalized rash except for above. NEUROLOGIC: Alert, oriented x 3, grossly nonfocal. PSYCHIATRIC: Calm and cooperative. General: Alert, No acute distress Heart: Regular rate, Normal S1, Normal S2 Abdomen: Soft, Other (dressing intact) Extremities: No clubbing, No cyanosis Skin: Other (erythema seems improved, skin ulceration central area) Assessment and Plan Assessmemt and Plan Problems Medical Problems: (1) Cellulitis and abscess of other specified site Status: Acute Comment Review of Relevant I have reviewed the following items mag (where applicable) has been applied. Justifications for Admission Other Justification HEMANTH ROSA MD Apr 19, 2021 11:35
[2021-04-19 15:00] VITALS: BP 106/57
--- NOTE | 2021-04-19 15:15 | NUR ---
Wound/Ostomy Care Wound Type/Assessment: midline distal abdomen abscess s/p I&D with Dr Enamorado on 04/16. Packing removed, wound cleansed, pictured and measured. Treatment Recommendations/Plan: Repacked with iodoform gauze as there is discussion of t leaving today. will complete home vac brad today and will have pt follow up in [facility] for placement. Pt will need daily packing with ABD pad until vac placement Education provided: PU prevention and WC POC Offloading surface/device: na Recommended Referrals/Tests: na Discharge Recommendations for dressings: continue as above noted with daily packing and follow up in [facility]
[2021-04-19] MEDS ORDERED: OXYC1TAB15 PO (16:31)
[2021-04-19] MEDS ORDERED: LINE600T12 PO (16:31)
--- NOTE | 2021-04-19 16:38 | PDOC3 ---
Discharge Summary Visit Information Date of Admission: Apr 13, 2021 Date of Discharge: Apr 19, 2021 Admitting Diagnosis: Cellulitis and abscess of abdominal wall Final Diagnosis Problems Medical Problems: (1) Cellulitis and abscess of other specified site Status: Acute Brief Hospital Course Allergies Allergies Coded Allergies Type Severity Reaction Last Updated Verified I S O L A T I O N *CONTACT* Allergy Unknown 04/19/21 Yes No Known Medication Allergies Allergy Unknown 04/19/21 Yes Vital Signs Vital Signs Date Time Temp Pulse Resp B/P (MAP) Pulse Ox O2 Delivery O2 Flow Rate FiO2 04/19/21 15:00 99.0 77 18 106/57 (73) 96 Room Air 99.0 Brief Hospital Course Ms Spencer is a 55yo F w/ PMHx HTN, RA (on MTX) who presented to the ER with abdominal wound and abscess. She took some Ultram and some nwlt-cpm-ivcretj meds. Admitted for IV antibiotics and general surgery and ID consulted. 04/14: No acute events overnight. Patient's pain is well controlled. Abdominal wound has some decrease in redness but still has active draining pus in the midline. Will consult surgery for evaluation. Patient's chart, labs, images were reviewed and discussed with RN 04/15: No acute events overnight. Patient feels okay today. A little bit tired. There is still active purulent drainage from the wound. Surgery for debridement on 04/16. Pending wound cultures from purulent fluid. Patient's chart, labs, images were reviewed and discussed with RN 04/16: No acute events overnight. Guided by wound care and more purulence was expressed. Surgery recommend I&D today. Pending wound cultures from purulent fluid so far preliminary shows staph aureus. Continue with IV antibiotics. 04/17: No acute events overnight. Patient's pain is well controlled. Tolerating diet without any complications. Ambulated without any difficulties. Dressings without any strikethrough or soakage. Patient's chart, labs, images were reviewed and discussed with RN 04/18: No acute events overnight. Pain is well controlled. Patient seen and examined bedside. Surgical wound site without any active bleeding or purulent drainage. Patient's chart, labs, images were reviewed and discussed with RN Afebrile. No overnight events. Good wound drainage. Changed p.o. Zyvox per ID recommendations. Has wound care at 1200 on 04/21/2021 and will go home with dressing change supplies for home wound care on 04/20/2021. Consults: General surgery, ID Problem list: Abdominal wall cellulitis, possible abscess formation status post excisional debridement and Brandy drain placement 04/16/2021 MRSA infection of the abscess wound from cultures of 04/15/2021 History of rheumatoid arthritis on DMARD History of depression anxiety History of umbilical hernia repair. No foreign material per patient report. Anxiety, depression. Marijuana dependence. Greater than 30 minutes spent on d/c home Discharge Information Condition at Discharge: Improved Follow Up: Weeks (1) Disposition/Orders: D/C to Home Scheduled Abatacept (Orencia) 125 Mg/1 Ml Disp.syrin, 125 MG IM WEEKLY, #4 (Reported) takes on Monday Entered as Reported by: DAHLIA OAKES on 06/10/1654 Last Action: Converted on 04/13/212239 by EMMIE NAVA Cyclobenzaprine Hcl (Cyclobenzaprine Hcl) 10 Mg Tablet, 10 MG PO DAILY, #30 (Reported) Entered as Reported by: DAHLIA OAKES on 06/10/16103 Last Action: Continued on 04/13/212239 by EMMIE NAVA Diclofenac Sodium (Voltaren) 100 Gm Gel..gram., 1 GM TP QID for pain for 30 Days, #1 Ref 0 (Reported) apply to affected area(s) Entered as Reported by: EMMIE NAVA on 04/13/212232 Last Action: Continued on 04/13/212239 by EMMIE NAVA Escitalopram Oxalate (Escitalopram Oxalate) 10 Mg Tablet, 1 TAB PO DAILY for anxiety, #30 Ref 3 (Reported) Entered as Reported by: EMMIE NAVA on 04/13/212232 Last Action: Converted on 04/13/212239 by EMMIE NAVA Folic Acid (Folic Acid) 1 Mg Tablet, 1 MG PO DAILY, #30 (Reported) Entered as Reported by: DAHLIA OAKES on 06/10/16103 Last Action: Continued on 04/13/212239 by EMMIE NAVA Gabapentin (Gabapentin ) 300 Mg Capsule, 300 MG PO BID for NEUROGENIC PAIN, (Reported) Entered as Reported by: EMMIE NAVA on 04/13/212232 Last Action: Continued on 04/13/212239 by EMMIE NAVA Lamotrigine (Lamotrigine) 25 Mg Tab.er.24, 25 TAB PO QID for bipolar disorder for 30 Days, #3000 Ref 0 (Reported) Entered as Reported by: EMMIE NAVA on 04/13/212232 Last Action: Converted on 04/13/212239 by EMMIE NAVA Linezolid (Zyvox) 600 Mg Tablet, 600 MG PO BID for MRSA for 10 Days, #20 Prescribed by: HEMANTH ROSA MD on 04/19/21 1631 Methotrexate Sodium (Methotrexate) 2.5 Mg Tablet, 2.5 MG PO WEEKLY, #16 (Reported) takes on Monday Entered as Reported by: DAHLIA OAKES on 06/10/16 0104 Last Action: Continued on 04/13/212239 by EMMIE NAVA Quetiapine Fumarate (Seroquel) 25 Mg Tablet, 25 MG PO BID for depression, (Reported) Entered as Reported by: EMMIE NAVA on 04/13/212232 Last Action: Continued on 04/13/212239 by EMMIE NAVA Rosuvastatin Calcium (Crestor) 5 Mg Tablet, 20 MG PO HS for FOR CHOLESTEROL, #30 Ref 0 (Reported) Entered as Reported by: EMMIE NAVA on 04/13/212232 Last Action: Converted on 04/13/212239 by EMMIE NAVA Scheduled PRN Oxycodone/Apap 5-325 (Percocet 5-325 Mg Tablet ) 1 Each Tablet, 1 TAB PO PRN Q6HRS PRN for SEVERE PAIN 7-10 for 6 Days, #24 Prescribed by: HEMANTH ROSA MD on 04/19/21 1633 Tizanidine Hcl (Tizanidine Hcl) 4 Mg Tablet, 2 MG PO TID PRN for MUSCLE SPASMS, (Reported) Entered as Reported by: EMMIE NAVA on 04/13/212232 Last Action: Continued on 04/13/212239 by EMMIE NAVA Discontinued Medications Hydrochlorothiazide (Hydrochlorothiazide Capsule ) 12.5 Mg Capsule, 12.5 MG PO DAILY for DIURETIC, Ref 0 (Reported) Entered as Reported by: EMMIE NAVA on 04/13/212232 Last Action: Continued on 04/13/212239 by EMMIE NAVA Tramadol Hcl (Tramadol Hcl) 50 Mg Tablet, 50 MG PO TID PRN for PAIN, Ref 0 (Reported) Entered as Reported by: EMMIE NAVA on 04/13/212232 Last Action: Continued on 04/13/212239 by EMMIE NAVA Justicifation of Admission Dx: Justifications for Admission: Justification of Admission Dx: N/A HEMANTH ROSA MD Apr 19, 2021 16:38
--- NOTE | 2021-04-19 17:16 | PDOC ---
SURGICAL PROGRESS NOTE DATE: 04/19/21 TIME: 17:15 Subjective Pt reports feeling better Vital Signs Vital Signs Date Time Temp Pulse Resp B/P (MAP) Pulse Ox O2 Delivery O2 Flow Rate FiO2 04/19/21 15:00 99.0 77 18 106/57 (73) 96 Room Air 99.0 I&O Intake and Output 04/19/21 07:00 Intake Total 990 ml Balance 990 ml Intake Oral 340 ml IV Total 650 ml # Voids 3 General: Alert, Oriented X3, Cooperative, No acute distress Abdomen: Soft, No tenderness, Other (dressing intact) Problem List Problems Medical Problems: (1) Cellulitis and abscess of other specified site Status: Acute Assessment/Plan s/p debridement OK to work towards d/c with wound care Justicifation of Admission Dx: Justifications for Admission: Justification of Admission Dx: N/A MARK STEINBERG MD Apr 19, 2021 17:16
[2021-04-19] MEDS ORDERED: LINEZOLID 600 MG TABLET PO SCH (21:00)
[2021-04-20] MEDS ORDERED: ABATACEPT 125 MG IM SCH (09:00)
--- NOTE | 2021-04-21 16:09 | PATHOLOGY ---
[facility] Accession Number: [id number] . 01 Material submitted: . abdomen - ABDOMINAL WALL ABSCESS. Modifiers: wall . 01 Clinical history: . ABSCESS WITH CELLULITIS DEBRIDEMENT OF ABDOMINAL WALL ABSCESS . 02 Diagnosis: Skin and subcutaneous tissue, abdominal wall abscess debridement: - Acute cellulitis and abscess involving skin and subcutaneous tissue, with erosion of epidermis. ([facility]; 04/21/2021) [facility] 04/21/2021 1521 Local . 02 Comment: There is no evidence of malignancy. ([facility]; 04/21/2021) . . 02 Electronically signed: . Kobe Daley MD, Pathologist NPI- [id number] . 01 Gross description: . The specimen is received in formalin, labeled "Cece Spencer, abdominal wall abscess" is a 6.2 x 3 x 4 cm fragment of centrally eroded skin. On sectioning the eroded area corresponds to a 1.2 cm cystic focally necrotic cavity. Claims Auditor sections A1. ([facility]; 04/20/2021) . KIRAN/KIRAN 04/20/2021 0041 Local . 02 Pathologist provided ICD-10: L02.211, L03.311 . 02 CPT . 946249 Specimen Comment: A courtesy copy of this report has been sent to [phone], [phone] Specimen Comment: [id number], , Specimen Comment: Report sent to ,DR CRUMP,DR PRECIADO / DR CAT Performed at: [address], [place], [place] [id number] MD Osmel Pathak MD Phone: [phone] Performed at: 02 [facility] [address] [place], [place] [id number] MD Kobe Daley MD Phone: [phone]
[2021-04-25] MEDS ORDERED: METHOTREXATE SODIUM 2.5 MG TABLET PO SCH (09:00)
== END 2021-04-19 17:20 | disposition home or self-care (01) | DRG 570 ==
LOC: ER 17:02 → 4 NORTH 18:09
PROVIDERS: ADMIT Internal Medicine; ATTEND Internal Medicine
PROC: 0W9F0ZZ Drainage of Abdominal Wall, Open Approach (ICD-10-PCS; 2021-04-16)
PROC: 0JB80ZZ Excision of Abdomen Subcutaneous Tissue and Fascia, Open Approach (ICD-10-PCS; principal; 2021-04-16 17:15)
DX: L02.211 Cutaneous abscess of abdominal wall (principal); A41.9 Sepsis, unspecified organism; L03.311 Cellulitis of abdominal wall; E78.00 Pure hypercholesterolemia, unspecified; E78.5 Hyperlipidemia, unspecified; F12.20 Cannabis dependence, uncomplicated; F32.9 Major depressive disorder, single episode, unspecified; F41.9 Anxiety disorder, unspecified; G62.9 Polyneuropathy, unspecified; I10 Essential (primary) hypertension; M06.9 Rheumatoid arthritis, unspecified; Z79.899 Other long term (current) drug therapy; Z82.49 Family history of ischemic heart disease and other diseases of the circulatory system; Z83.3 Family history of diabetes mellitus; Z87.891 Personal history of nicotine dependence
CPT/HCPCS: 36415; 74177; 80048; 80053; 82550; 82962; 83605; 83735; 85025; 86140; 87040; 87071; 87075; 87077; 87186; 88304; 96361; 96365; 96375; A4930; A6253; A6402; J0878; J1100; J1170; J2405; J2543; J2704; J3010; J3370; J7030; J7040; Q9967; U0003; U0005; 99285-25; G0378; Q0163